=== PATIENT | female | born 1975 | race African-American/Black ===

== ENCOUNTER 2016-06-05 07:41 | Inpatient (IN) | payer OTHER ==
[2016-06-05] MEDS ORDERED: NS 1,000 ML IV ONE (08:09)
[2016-06-05] MEDS ORDERED: ZOFRAN IV ONE (08:09)
[2016-06-05 08:28] LABS: MANUAL DIFF NEEDED? NO; URINE CULTURE NEEDED? NO; URINE MICRO REVIEW NEEDED? NO; URINE SOURCE CLEAN CATCH
[2016-06-05 08:34] LABS: BASO% 0.8 % (0.0-0.8); EOS# 0.25 X1000 (0.0-0.7); EOS% 4.7 % (0.0-10.0); HEMATOCRIT 40.5 % (37.0-47.0); HEMOGLOBIN 13.7 g/dL (12.0-16.0); IMM GRAN# 0.02 X1000 (0.0-0.04); IMM GRAN% 0.4 % (0.0-0.5); LYMPH% 24.5 % (20.5-51.1); MCHC 33.8 g/dL (33-37); MCV 85.6 FL (81-99); MONO# 0.64 X1000 (0.11-0.59); MONO% 12.1 % (1.7-9.3); NEUT% 57.5 % (42.2-75.2); PLT 216 X1000 (130-400); RBC 4.73 XMIL (4.2-5.4)
[2016-06-05 08:36] LABS: BILIRUBIN URINE NEGATIVE (NEGATIVE); BLOOD URINE TRACE (NEGATIVE); COLOR ORANGE; GLUCOSE URINE NEGATIVE (NEGATIVE); LEUKOCYTES URINE NEGATIVE (NEGATIVE); NITRITE URINE NEGATIVE (NEGATIVE); PH URINE 5.5; PROTEIN URINE 30 mg/dL (NEGATIVE); SP GRAVITY URINE 1.017; TURBIDITY URINE CLEAR (CLEAR); UROBILINOGEN URINE 2 mg/dL (NORMAL)
[2016-06-05 08:37] LABS: UR EPITHELIAL CELLS <10 /HPF (<10); URINE BACTERIA NEGATIVE /HPF; URINE RBC <10 /HPF (<10); URINE WBC <10 /HPF (<10)
[2016-06-05] MEDS ORDERED: MORPHINE IV ONE (08:44)
[2016-06-05 09:06] LABS: AGAP 16; ALKALINE PHOSPHATASE 103 U/L (32-104); AMYLASE 274 U/L (20-200); BUN 5 mg/dL (8-22); CALCIUM 9.6 mg/dL (8.8-10.2); CHLORIDE 95 mmol/L (98-107); COSMO 270; GOT 115 U/L (10-30); GPT 62 U/L (10-36); POTASSIUM 3.4 mmol/L (3.5-5.1); SODIUM 136 mmol/L (136-145); TCO2 25 mmol/L (25-35)
--- NOTE | 2016-06-05 09:23 | PROVIDER DOCUMENTATION ---
HPI-Abdominal Pain/GI Problem - General Chief Complaint: Abdominal Pain Stated Complaint: RIB/ABD PAIN Time Seen by Provider: 06/05/16 08:09 Source: patient Allergies/Adverse Reactions: Patient Allergies Allergy/AdvReac Type Severity Reaction Status Date / Time Penicillins Allergy Intermediate RASH Verified 04/13/16 03:23 Home Medications: Home Medication List Medication Instructions Recorded Confirmed Last Taken Type Albuterol Sulfate Inhaler 2 puff INH Q4H PRN PRN #1 inhaler 01/18/16 06/05/16 08:00 Rx [Ventolin Hfa] Lisinopril/Hydrochlorothiazide 1 each PO DAILY 01/18/16 06/05/16 06/04/16 History [Lisinopril-Hctz 20-12.5 mg Tab] - History of Present Illness-ABD Nature of Presenting Problems: patient is 41 yo F that presents to the ER with epigastric pain x 3 days. She denies n/v but does report some diarrhea. Denies fever/chills, shortness of breath. Patient has been eating and drinking as normal. Patient also c/o right rib pain since Mar.31 in which she had fractured ribs. Abdominal Pain Onset Location: reports: epigastric Pain Radiation: reports: no radiation Quality of Pain: reports: aching, cramping Severity in ED: reports: mild Onset/Duration: reports: gradual, 3 days ago Timing: reports: still present, constant Activities at Onset: reports: none Exposure to sick contacts?: No Modifying Factors: improves with: nothing Associated Symptoms: reports: diarrhea. denies: back/neck pain, constipation, fever/chills, genitourinary problems, nausea, shortness of breath, vomiting Similar Symptoms Previously?: No Recently seen or treated by another doctor?: No Review of Systems - Adult - REVIEW OF SYSTEMS - ADULT Constitutional: denies: chills, fever Eyes: reports: no symptoms reported Ears, Nose, Mouth & Throat: reports: no symptoms reported Cardiovascular: denies: chest pain, orthopnea, palpitations, syncope Respiratory: reports: pleurisy. denies: cough, wheezing Gastrointestinal: reports: abdominal pain, diarrhea. denies: nausea, vomiting Genitourinary: reports: no symptoms reported Musculoskeletal: denies: back pain, joint pain, neck pain Integumentary: reports: no symptoms reported Neurological: reports: no symptoms reported Psychiatric: reports: no symptoms reported Endocrine: reports: no symptoms reported Hematologic/Lymphatic: reports: no symptoms reported Allergic/Immunologic: reports: no symptoms reported All Other Systems: Reviewed and Negative Past History - Adult - PAST MEDICAL HISTORY-ADULT Review of Records: reports: Old Records Reviewed, Nursing Assessment Review, Medications Reviewed Cardiovascular: reports: HTN, hyperlipidemia Respiratory: reports: COPD, other (EMPHYSEMA) Psychiatric: reports: anxiety, depression, psychiatric problems Endocrine/Immune: reports: Diabetes, thyroid disorder - PRIOR SURGERIES/PROCEDURES Surgical/Procedure History: reports: hysterectomy, BTL, hernia repair, orthopedic (extremity) - IMMUNIZATION STATUS Childhood Immunizations: See Nurse Assessment Flu Vaccine: See Nurse Assessment - FAMILY HISTORY Family History: reviewed, not pertinent - SOCIAL HISTORY Smoking: cigarettes, less than 1 pack/day Alcohol Use Frequency: occasionally Living Situation: family Physical Exam-General - PHYSICAL EXAM-ADULT Initial Vital Signs Reviewed: Yes - CONSTITUTIONAL General Appearance: alert, no apparent distress - EYES Eyes: PERRL/EOMI, pink conjunctivae - HEAD, EARS, NOSE, MOUTH & THROAT HENMT: normocephalic/atraumatic, moist mucous membranes, normal ENT inspection - NECK Neck: full range of motion, normal inspection - RESPIRATORY Respiratory: lungs clear, normal breath sounds, no respiratory distress, no accessory muscle use - CARDIOVASCULAR Cardiovascular: no gallop, no murmur, tachycardia - GASTROINTESTINAL (ABDOMEN) Abdominal Exam: normal bowel sounds, soft, no organomegaly, no pulsatile mass, tenderness (110s) - MUSCULOSKELETAL Extremity: normal range of motion, non-tender, normal inspection, no pedal edema - SKIN Integumentary: normal color, warm/dry - NEUROLOGIC Neurologic: grossly normal, no motor/sensory deficits - PSYCHIATRIC Psych/Mental Status: normal mood/affect, normal thought content, normal thought process, oriented x 3 Progress - PLAN OF CARE/RESULTS Progress/Plan/Lab Results: plan of care-labs, meds, ct abd/pelv Vital Signs Temp Pulse Resp BP Pulse Ox 06/05/16 07:54 98.8 F 110 H 18 177/122 100 Penicillins Allergy (Intermediate, Verified 04/13/16 03:23) RASH Albuterol Sulfate Inhaler [Ventolin Hfa] 2 puff INH Q4H PRN PRN #1 inhaler 10/18 /16 Lisinopril/Hydrochlorothiazide [Lisinopril-Hctz 20-12.5 mg Tab] 1 each PO DAILY 01/18/16 Dietary Diet NPO Start SunJun 05 08 I&O 06/04/16 06/05/16 06/06/16 06:59 06:59 06:59 Output Total 20 Balance -20 Laboratory 06/05/16 06/05/16 06/05/16 08:15 08:15 08:15 WBC 5.30 RBC 4.73 Hgb 13.7 Hct 40.5 MCV 85.6 MCH 29.0 MCHC 33.8 RDW Std Deviation 13.3 Plt Count 216 MPV 10.0 Immature Gran % (Auto) 0.4 Neut % (Auto) 57.5 Lymph % (Auto) 24.5 [place] % (Auto) 12.1 H Eos % (Auto) 4.7 Baso % (Auto) 0.8 Immature Gran # (Auto) 0.02 Neut # (Auto) 3.05 Lymph # (Auto) 1.30 [place] # (Auto) 0.64 H Eos # (Auto) 0.25 Baso # (Auto) 0.04 Sodium Potassium Chloride Carbon Dioxide Anion Gap BUN Creatinine Estimated GFR/1.73 m2 BUN/Creatinine Ratio Glucose Calculated Osmolality Calcium Total Bilirubin AST ALT Alkaline Phosphatase Total Protein Albumin Globulin Albumin/Globulin Ratio Amylase Lipase Urine Source CLEAN CATCH Urine Color ORANGE Urine Turbidity CLEAR Urine pH 5.5 Ur Specific [place] 1.017 Urine Protein 30 A Ur Glucose (Stick) NEGATIVE Ur Ketones (Stick) NEGATIVE Urine Blood TRACE A Urine Nitrite NEGATIVE Urine Bilirubin NEGATIVE Urobilinogen Dipstick 2 A Urine Leukocytes NEGATIVE Urine WBC (Auto) <10 Urine RBC (Auto) <10 U Epithel Cells (Auto) <10 Urine Bacteria (Auto) NEGATIVE Urine Test NEGATIVE 06/05/16 08:15 WBC RBC Hgb Hct MCV MCH MCHC RDW Std Deviation Plt Count MPV Immature Gran % (Auto) Neut % (Auto) Lymph % (Auto) [place] % (Auto) Eos % (Auto) Baso % (Auto) Immature Gran # (Auto) Neut # (Auto) Lymph # (Auto) [place] # (Auto) Eos # (Auto) Baso # (Auto) Sodium 136 Potassium 3.4 L Chloride 95 L Carbon Dioxide 25 Anion Gap 16 BUN 5 L Creatinine 0.5 Estimated GFR/1.73 m2 > 60 BUN/Creatinine Ratio 10 Glucose 120 H Calculated Osmolality 270 Calcium 9.6 Total Bilirubin 1.00 AST 115 H ALT 62 H Alkaline Phosphatase 103 Total Protein 8.0 Albumin 4.0 Globulin 4.0 Albumin/Globulin Ratio 1.0 Amylase 274 H Lipase 776 H Urine Source Urine Color Urine Turbidity Urine pH Ur Specific [place] Urine Protein Ur Glucose (Stick) Ur Ketones (Stick) Urine Blood Urine Nitrite Urine Bilirubin Urobilinogen Dipstick Urine Leukocytes Urine WBC (Auto) Urine RBC (Auto) U Epithel Cells (Auto) Urine Bacteria (Auto) Urine Test Orders Category Date Time Status Saline Loc DIRECTED Care 06/05/16 08:09 Active NPO Diet 06/05/16 08:[address] ABD/PELVIS W/ IV CONT ONLY [CT] Stat Exams 06/05/16 08:44 Draft FLAT/UPRIGHT ABD/1 VIEW CHEST [RAD] Stat Exams 06/05/16 08:09 Completed AMYLASE [CHEM] Stat Lab 06/05/16 08:15 Completed CBC WITH ELECTRONIC DIFF [HEME] Stat Lab 06/05/16 08:15 Completed COMPREHENSIVE METABOLIC PANEL [CHEM] Stat Lab 06/05/16 08:15 Completed ETOH [ALCOHOL BLOOD] Stat Lab 06/05/16 11:06 Ordered LIPASE [CHEM] Stat Lab 06/05/16 08:15 Completed TEST-URINE [PREG] Stat Lab 06/05/16 08:15 Completed URINALYSIS W/POSS RFLX CULT [URINALYSIS] Stat Lab 06/05/16 08:15 Completed 0.9% Sodium Chloride Inj [Ns] 1,000 ml Med 06/05/16 08:09 Discontinued IV 999 mls/hr Morphine Med 06/05/16 08:44 Discontinued 4 mg IV NOW ONE Ondansetron [Zofran] Med 06/05/16 08:09 Discontinued 4 mg IV NOW ONE - XRAY 1 XRAY Study: Chest Impression: Normal XRAY Interpretation: NAD - CT/MRI 1 CT Study: Abdomen, Pelvis Impression: Abnormal CT Results: calification in the head of pancreas - CONSULTS/PCP/HOSPITALIST Notification #1 *Consult/PCP/Hospitalist*: Arcadio Diaz for hospitalist accepted Time Discussed: 11:15 Consult Disposition: Will see in ED, Admit Departure - Departure Time of Disposition Order: 11:23 DIAGNOSIS: Pancreatitis Qualifiers: Chronicity: acute Pancreatitis type: other Acute pancreatitis complication: uninfected necrosis Qualified Code(s): K85.81 - Other acute pancreatitis with uninfected necrosis Disposition: ADMITTED INPATIENT 09 Certified Medical Emergency: Emergent Condition: Stable Attestation - Scribe Verification/Attestation Scribe:: Saurabh Arnett Acting as Scribe for:: Blake Lozoya Scribe documention review:: This chart was documented by a scribe and accurately reflects the service the provider performed and the decisions made by the provider. Physician Attestation - Physician Attestation I, the provider, attest to the following statement:: Blake Lozoya Physician documentation Attestation:: This documentation recorded by the scribe accurately reflects the service I personally performed and the decisions made by me.
--- NOTE | 2016-06-05 09:45 | Diag Imaging Result Document ---
PROCEDURE NAME: FLAT/UPRIGHT ABD/1 VIEW CHEST - 06/05/2016 FLAT AND UPRIGHT AND CHEST, THREE VIEWS: FINDINGS: The lungs are well expanded. No cardiomegaly. No pneumonia. No free air beneath the diaphragm. Mild scoliosis. No bowel obstruction. No organomegaly. There are several pelvic calcifications consistent with phleboliths. IMPRESSION: No acute abnormality.
[2016-06-05 09:51] LABS: LIPASE 776 U/L (13-60)
--- NOTE | 2016-06-05 10:19 | Diag Imaging Result Document ---
PROCEDURE NAME: CT ABD/PELVIS W/ IV CONT ONLY - 06/05/2016 CT OF THE ABDOMEN WITH INTRAVENOUS CONTRAST: FINDINGS: There are calcifications present in the distal aorta. The mesenteric vessels are patent as are the renal arteries. There appears to be some hypertrophy of the left ventricle. There is no evidence of acute pulmonary disease in the visualized portion of the chest. There are some granulomata present in the liver and spleen. The liver is slightly hypodense suggesting fatty change. The gallbladder is not distended nor are there definite calcified stones. There is a nodular calcification in the head of the pancreas measuring less than 3 mm in diameter. This may be in a distal accessory duct in the head of the pancreas. Otherwise, the pancreas is unremarkable in appearance. The kidneys are without evidence of hydronephrosis. There is a cortical cyst present in the upper pole of the left kidney. There is no evidence of significant adenopathy. CT OF THE PELVIS WITH INTRAVENOUS CONTRAST: FINDINGS: The appendix is not distended or inflamed in appearance measuring less than 7 mm in diameter. There are a few colonic diverticula without evidence of diverticulitis. There has been previous hysterectomy. No abnormal fluid collections are present. IMPRESSION: Calcification in the head of the pancreas which could represent a stone in an accessory duct in the head of the pancreas versus residua from mild chronic pancreatitis. Clinical correlation is recommended.
[2016-06-05] MEDS ORDERED: ATIVAN IV ONE (11:57)
[2016-06-05] MEDS: ATIVAN IV PRN ×2 (13:25→18:55)
[2016-06-05] MEDS: POTASSIUM CHLORIDE 20 MEQ/SWI 100 ML IV SCH ×2 (13:25→15:28)
[2016-06-05] MEDS: NS 1,000 ML IV SCH ×2 (13:25→21:21)
[2016-06-05] MEDS: PROTONIX IV SCH (13:25)
[2016-06-05] MEDS: PRINIVIL PO SCH ×2 (13:25→21:21)
[2016-06-05] MEDS: SODIUM CHLORIDE 0.9% INJ SCH (13:25)
[2016-06-05] MEDS: NICODERM PATCH TD SCH (13:25)
[2016-06-05 14:46] LABS: HDL 71 mg/dL (45-65); LDL 86 mg/dL; TRIGLYCERIDES 73 mg/dL (35-135); VLDL 15 mg/dL
[2016-06-05 14:47] LABS: HEMOGLOBIN A1C 5.4 % (4.8-6.0)
[2016-06-05 14:50] LABS: FREE T4 0.82 ng/dL (0.93-1.70)
[2016-06-05] MEDS: MORPHINE IV PRN ×2 (15:28→21:21)
--- NOTE | 2016-06-05 15:56 | HISTORY AND PHYSICAL ---
HISTORY: She has been hurting for she said a good 3 or 4 days up in the epigastric and left upper quadrant. She denies fever but it hurts to eat and has some low-grade nausea. She admits she drinks at least 10 beers a day. PAST MEDICAL HISTORY: Hypertension, hypercholesterolemia. PAST SURGICAL HISTORY: She fell off her porch and broke her right arm and had some internal fixation with plates done. She has a scar in the posterior right arm and she has had a hysterectomy, she said a month ago. FAMILY HISTORY: Positive for hypertension and diabetes. SOCIAL HISTORY: She smokes about a pack a day. She drinks a good 10-12 beers a day, every day. REVIEW OF SYSTEMS: General: She does not report any weight gain or loss. She does not report any fever or chills. HEENT: Unremarkable. Respiratory: No increased work of breathing or dyspnea. Cardiovascular: No chest pain or tachy palpitation. GI/: As above. No gross hematuria. No hematochezia but abdominal pain and it seems to be intensified after eating, has not been able to eat much in the last couple of days. PHYSICAL EXAMINATION: VITAL SIGNS: Temperature 98.8 degrees, pulse 110, respirations 18, blood pressure 177/122. HEENT: Pupils are equal and round. CVP less than 6 cm. LUNGS: Clear in all lung caruso. CARDIOVASCULAR: Regular rate without murmur or S3. ABDOMEN: Tender, epigastric tender upper left quadrant. Pretty tender. No organomegaly appreciated. No tenderness in the lower quadrant. SKIN: Warm and dry. Carotid, radial and femoral pulses 2+ and symmetrical. LABORATORY STUDIES: White blood cell count 5300, hematocrit 40, platelet count 216,000. Sodium 136, potassium 3.4, chloride 95, bicarbonate 25, BUN 5, creatinine 0.5. Liver functions: Her amylase is 274, lipase 776, transaminases AST and ALT mildly elevated at 115 and 62 respectively. Alkaline phosphatase 103. Abdominal CT and abdominal pelvic CT with IV contrast only, calcification at the head of the pancreas which could represent a stone and an accessory duct in the head of the pancreas versus residua from chronic pancreatitis. Appendix is not distended or inflamed. There a few colonic diverticula. No evidence of diverticulitis. The liver is slightly hypodense suggesting fatty change. Gallbladder is not distended. Pancreas, there is a nodular calcification of the pancreas measuring about 3 mm in diameter. ASSESSMENT AND PLAN: 1. Acute pancreatitis. This appears to be from alcohol. We will give her IV fluids. Hold her NPO and see if this will resolve and give her some pain control, antiemetics. 2. Alcoholism. Of course she is not going to be having any alcohol. Look for signs of withdrawal. We will let her have Ativan right now 1 mg IV q.4 hours p.r.n. withdrawal symptoms or agitation. We will look for withdrawal. 3. General nutrition looks good. Looking at her medications from home she does take a Ventolin inhaler, she is on lisinopril, hydrochlorothiazide. We will stop the hydrochlorothiazide and we will continue the lisinopril. Hydrochlorothiazide can contribute to pancreatitis as well. We may go up on the lisinopril to 20 mg twice a day for right now. Her blood pressure is a little elevated because of the pain. Watch her electrolytes including calcium and phosphorus and follow her pancreatic enzymes.
[2016-06-05] MEDS ORDERED: HUMALOG SUBQ SCH (16:00)
[2016-06-05] MEDS: HUMALOG SUBQ SCH ×2 (18:11→21:04)
[2016-06-06] MEDS ORDERED: CATAPRES PO ONE (01:17)
[2016-06-06] MEDS: MORPHINE IV PRN ×3 (02:59→21:10)
[2016-06-06] MEDS ORDERED: NITROGLYCERIN TOP ONE (03:17)
[2016-06-06 03:33] LABS: HEMATOCRIT 34.9 % (37.0-47.0); HEMOGLOBIN 11.7 g/dL (12.0-16.0); MCH 29.6 PG (27-31); MCHC 33.5 g/dL (33-37); MCV 88.4 FL (81-99); RBC 3.95 XMIL (4.2-5.4)
[2016-06-06] MEDS: NS 1,000 ML IV SCH ×6 (03:40→23:36)
[2016-06-06] MEDS: ATIVAN IV PRN ×3 (03:40→22:07)
[2016-06-06 03:49] LABS: AGAP 13; ALBUMIN 3.1 g/dL (3.5-5.0); ALKALINE PHOSPHATASE 74 U/L (32-104); BUN 4 mg/dL (8-22); CALCIUM 8.7 mg/dL (8.8-10.2); CHLORIDE 101 mmol/L (98-107); COSMO 269; GOT 59 U/L (10-30); GPT 40 U/L (10-36); LIPASE 198 U/L (13-60); POTASSIUM 3.6 mmol/L (3.5-5.1); SODIUM 136 mmol/L (136-145); TCO2 22 mmol/L (25-35); TOTAL BILIRUBIN 0.66 mg/dL (0.20-1.00); TOTAL PROTEIN 6.2 g/dL (6.3-8.3)
[2016-06-06] MEDS: HUMALOG SUBQ SCH ×4 (06:41→20:34)
--- NOTE | 2016-06-06 07:41 | EKG Report ---
Test Performed on : 06/06/2016 03:05:51 AM Test Reason : CP Blood Pressure : / mmHG Vent. Rate : 069 BPM Atrial Rate : 069 BPM P-R Int : 200 ms QRS Dur : 092 ms QT Int : 444 ms P-R-T Axes : 049 041 044 degrees QTc Int : 475 ms Normal sinus rhythm. Minimal voltage criteria for LVH, may be normal variant Borderline ECG When compared with ECG of 01-APR-2016 04:30, No significant change was found Confirmed by Fer NOLEN, Rodriguez Underwood ([id number]) on 06/06/2016 5:21:50 PM
[2016-06-06] MEDS: PRINIVIL PO SCH ×2 (09:25→21:10)
[2016-06-06] MEDS: NICODERM PATCH TD SCH (09:27)
[2016-06-06 11:00] LABS: HEPATITIS PROFILE ACUTE SEE COMMENTS (())
[2016-06-06] MEDS: SODIUM CHLORIDE 0.9% INJ SCH (11:37)
[2016-06-06] MEDS: PROTONIX IV SCH (11:38)
--- NOTE | 2016-06-06 11:49 | Diag Imaging Result Document ---
PROCEDURE NAME: US GB < RUQ (LIMITED) - 06/06/2016 RIGHT UPPER QUADRANT ULTRASOUND: FINDINGS: Normal pancreas. No aneurysmal dilatation to the abdominal aorta. Normal inferior vena cava. No focal or diffuse hepatic abnormality. Normal right kidney. No hydronephrosis. Normal gallbladder. No stones. The gallbladder wall is not thickened. The common bile duct measures 3 mm. No ascites in the right upper quadrant. No abnormality to the right kidney. IMPRESSION: Normal right upper quadrant ultrasound. No pancreatic mass or pseudocyst is identified.
--- NOTE | 2016-06-06 15:25 | PROGRESS NOTE ---
DATE: 06/06/2016 SUBJECTIVE: Today, Ms. Verdugo refers to be doing a whole lot better. Minimum abdominal pain. She is actually requesting to eat some food. OBJECTIVE: Vital signs: Blood pressure is 180/102, pulse of 72, respirations 18, temperature 98.8 degrees. General: Ms. Verdugo is a 41-year-old female. She is in bed, in no distress. HEENT: Mucosa is pink and moist. Anicteric. Acyanotic. Neck: Supple. Chest: Clear. Cardiovascular: Regular rate and rhythm. Abdomen: Soft. Mildly tender in the epigastrium and periumbilical area. Bowel sounds are present. Central Nervous System: Patient is alert and oriented x4. There is no focal neurological deficit. LABORATORY DATA: CBC reviewed and unremarkable except for hemoglobin of 11.7. Chemistry reviewed and unremarkable. AST is down to 59, ALT is down to 40, lipase is down to 198. Hepatitis panel is completely negative. A right upper quadrant abdominal ultrasound shows normal right upper quadrant. ASSESSMENT: 1. Acute pancreatitis, likely due to alcohol-induced. 2. Alcohol abuse. 3. Protein calorie malnutrition. 4. Elevated blood pressure. Patient seems to be actually hypertensive. I am going to add low-dose amlodipine to help control her blood pressure. [facility]
[2016-06-06] MEDS: NORVASC PO SCH (15:28)
[2016-06-06] MEDS: ZOFRAN IV PRN (18:29)
[2016-06-07] MEDS: MORPHINE IV PRN ×5 (02:47→21:42)
[2016-06-07] MEDS: NS 1,000 ML IV SCH ×6 (06:29→23:17)
[2016-06-07 07:19] LABS: HEMATOCRIT 39.7 % (37.0-47.0); MCH 29.4 PG (27-31); MCHC 32.7 g/dL (33-37); MCV 89.8 FL (81-99); MPV 10.4 FL (7.4-10.4); RBC 4.42 XMIL (4.2-5.4)
[2016-06-07] MEDS: HUMALOG SUBQ SCH ×4 (07:20→23:17)
[2016-06-07 07:45] LABS: AGAP 12; ALBUMIN 3.6 g/dL (3.5-5.0); ALKALINE PHOSPHATASE 79 U/L (32-104); BUN 3 mg/dL (8-22); CALCIUM 9.2 mg/dL (8.8-10.2); CHLORIDE 98 mmol/L (98-107); COSMO 273; GOT 49 U/L (10-30); GPT 38 U/L (10-36); LIPASE 285 U/L (13-60); SODIUM 138 mmol/L (136-145); TCO2 28 mmol/L (25-35); TOTAL BILIRUBIN 0.73 mg/dL (0.20-1.00); TOTAL PROTEIN 7.2 g/dL (6.3-8.3)
[2016-06-07] MEDS: NORVASC PO SCH ×2 (08:48→23:16)
[2016-06-07] MEDS: PRINIVIL PO SCH ×2 (08:48→23:16)
[2016-06-07] MEDS: NICODERM PATCH TD SCH (08:48)
[2016-06-07] MEDS: NEUTRA-PHOS PO SCH ×4 (08:51→23:16)
[2016-06-07] MEDS: PROTONIX IV SCH (11:41)
[2016-06-07] MEDS: SODIUM CHLORIDE 0.9% INJ SCH (11:41)
[2016-06-07] MEDS: ZOFRAN IV PRN (14:21)
--- NOTE | 2016-06-07 15:41 | PROGRESS NOTE ---
DATE: 06/07/2016 SUBJECTIVE: Today Ms. Verdugo refers to be doing a lot better. Still continues to have some epigastric discomfort. OBJECTIVE: Vital signs: Blood pressure is 144/100, pulse is 75, respiration is 18, temperature 99.5 degrees. General: Ms. Verdugo is a 41-year-old female. She is in bed, in no distress. HEENT: Mucosa is pink and moist. Anicteric. Acyanotic. Neck: Supple. Chest: Clear. Cardiovascular: Regular rate and rhythm. Abdomen: Soft. Mildly tender in the periumbilical area and epigastrium. Bowel sounds are present. [employer]: Patient is alert and oriented x4. There is no focal neurological deficit. LABORATORY DATA: Has been reviewed. CBC is unremarkable. Chemistry is unremarkable except for potassium of 3.0 which is being replaced, magnesium is 1.4, replace. AST and ALT slightly elevated but improved. Lipase is 285, that has gone up slightly. ASSESSMENT: 1. Acute pancreatitis likely due to alcohol induced. 2. Alcohol abuse. 3. Protein calorie malnutrition. 4. Hypertension, uncontrolled. ASSESSMENT: The patient seems to be doing a little better. However the lipase went up slightly yesterday and waiting to give the patient full healthy heart diet to see if she is able to tolerate it without nausea or vomiting and any worsening of the abdominal pain before we discharge her. In terms of the uncontrolled hypertension, amlodipine was started yesterday, blood pressure has improved somehow, we are going to increase the dose to 5 b.i.d. for better blood pressure control. We will repeat the electrolytes for tomorrow. We will also replace her magnesium and potassium.
[2016-06-07] MEDS: ATIVAN IV PRN (18:29)
[2016-06-08] MEDS: ZOFRAN IV PRN (00:06)
[2016-06-08] MEDS: MORPHINE IV PRN (06:26)
[2016-06-08] MEDS: NS 1,000 ML IV SCH (06:27)
[2016-06-08 06:36] LABS: HEMATOCRIT 38.7 % (37.0-47.0); HEMOGLOBIN 12.6 g/dL (12.0-16.0); MCH 28.8 PG (27-31); MCHC 32.6 g/dL (33-37); MCV 88.6 FL (81-99); MPV 10.1 FL (7.4-10.4); RBC 4.37 XMIL (4.2-5.4)
[2016-06-08 06:41] LABS: AGAP 14; ALBUMIN 3.7 g/dL (3.5-5.0); ALKALINE PHOSPHATASE 84 U/L (32-104); BUN 2 mg/dL (8-22); CALCIUM 9.7 mg/dL (8.8-10.2); CHLORIDE 98 mmol/L (98-107); COSMO 274; GOT 50 U/L (10-30); GPT 40 U/L (10-36); LIPASE 96 U/L (13-60); POTASSIUM 3.4 mmol/L (3.5-5.1); SODIUM 138 mmol/L (136-145); TCO2 26 mmol/L (25-35); TOTAL BILIRUBIN 0.51 mg/dL (0.20-1.00); TOTAL PROTEIN 7.4 g/dL (6.3-8.3)
[2016-06-08 07:35] VITALS: BP 147/109
[2016-06-08] MEDS: HUMALOG SUBQ SCH (07:55)
[2016-06-08] MEDS: PRINIVIL PO SCH (08:00)
[2016-06-08] MEDS: NORVASC PO SCH (08:00)
[2016-06-08] MEDS: NEUTRA-PHOS PO SCH (08:01)
[2016-06-08] MEDS: NICODERM PATCH TD SCH (08:01)
[2016-06-08] MEDS ORDERED: MAG-OX PO SCH (09:15)
[2016-06-08] MEDS ORDERED: NORCO-7.5 PO PRN (09:46)
[2016-06-09] MEDS ORDERED: PRILOSEC PO SCH (07:00)
--- NOTE | 2016-06-15 04:20 | DISCHARGE SUMMARY ---
ADMISSION DATE: 06/05/2016 DISCHARGE DATE: 06/08/2016 CONSULTATION DURING THIS ADMISSION: None. IMAGING STUDIES OF SIGNIFICANCE: 1. CT scan of the abdomen and pelvis shows calcification in the head of the pancreas. Mild chronic pancreatitis. 2. Ultrasound of the abdomen showed normal right upper quadrant. No pancreatic mass or pseudocyst is identified. ADMISSION DIAGNOSES: 1. Acute pancreatitis. 2. Alcoholism. DISCHARGE DIAGNOSES: 1. Alcohol-induced acute pancreatitis. 2. Alcohol abuse. 3. Protein calorie malnutrition. 4. Hypertension. DISCHARGE MEDICATIONS: 1. Hydrocortisone. 2. Lisinopril 20 mg b.i.d. 3. Omeprazole 40 mg daily. 4. Amlodipine 5 mg b.i.d. 5. Magnesium oxide 800 mg b.i.d. PRESENTING COMPLAINT: Abdominal pain. HISTORY OF PRESENTING COMPLAINT: Ms. Verdugo is a 41-year-old, female who presented to the emergency department on 06/05/2016 with history of abdominal discomfort. The patient was evaluated. A CT scan initial suggested a possible acute pancreatitis. Lab work did show lipase level of 776. The patient was subsequently admitted for evaluation and management. HOSPITAL COURSE: The patient was treated in regular fashion with aggressive IV fluids and adequate pain management. Patient normally uses a lot of alcohol, specifically beer on daily basis and we think the pancreatitis was due to alcohol. She did do pretty well during the hospital stay. We did stress on the need for her to stop alcohol bingeing since this is causing her remarkable medical problems. On the day of discharge, she referred to be doing fine. Lipase was on the downward trend and the liver enzymes were also on the downward trend, almost normalized. Patient magnesium was low and was replaced. Potassium was low when was also replaced. Her vital signs at the time of discharge were stable. Blood pressure was also controlled and she was discharged in a very stable condition. Specifically, we stressed the need of alcohol cessation and also the compliance with medication and followup. Time spent for discharge was 36 minutes.
== END 2016-06-08 10:31 | disposition home or self-care (01) | DRG 439 ==
LOC: ED 07:41 → 4N 12:07
PROVIDERS: ATTEND Internal Medicine
DX: K85.20 Alcohol induced acute pancreatitis without necrosis or infection (principal); E46 Unspecified protein-calorie malnutrition; J43.9 Emphysema, unspecified; I10 Essential (primary) hypertension; E78.5 Hyperlipidemia, unspecified; F41.9 Anxiety disorder, unspecified; F32.9 Major depressive disorder, single episode, unspecified; E11.9 Type 2 diabetes mellitus without complications; E07.9 Disorder of thyroid, unspecified; F17.210 Nicotine dependence, cigarettes, uncomplicated; Z79.899 Other long term (current) drug therapy; Z82.49 Family history of ischemic heart disease and other diseases of the circulatory system; Z83.3 Family history of diabetes mellitus; F10.20 Alcohol dependence, uncomplicated; Z68.24 Body mass index [BMI] 24.0-24.9, adult
CPT/HCPCS: 74022; 74177; 76705; 80053; 80061; 80074; 81001; 81025; 82150; 82550; 82607; 82746; 82948; 83036; 83690; 83735; 84439; 84443; 84484; 85025; 85027; 86140; 93005; 93010; 96374; 96375; C9113; G0480; J2060; J2270; J2405; J3480; J7030; Q9967; 80320; S0164

== ENCOUNTER 2016-06-17 21:22 | Inpatient (IN) ==
--- NOTE | 2016-06-17 21:30 | PROVIDER DOCUMENTATION ---
HPI-General Adult - General Stated Complaint: PANCREATIC PAIN Time Seen by Provider: 06/17/16 21:26 Source: patient Allergies/Adverse Reactions: Patient Allergies Allergy/AdvReac Type Severity Reaction Status Date / Time Penicillins Allergy Intermediate RASH Verified 04/13/16 03:23 Home Medications: Home Medication List Medication Instructions Recorded Confirmed Last Taken Type Albuterol Sulfate Inhaler 2 puff INH Q4H PRN PRN #1 inhaler 01/18/16 06/05/16 08:00 Rx [Ventolin Hfa] Amlodipine [Norvasc] 5 mg PO BID #60 tablet 06/08/16 Unknown Rx Hydrocodone/APAP 7.5 mg/325 mg 1 each PO Q6H PRN PRN #10 tablet 06/08/16 Unknown Rx [[place]-7.5] LISINOpril [Prinivil] 20 mg PO BID #60 tablet 06/08/16 Unknown Rx Magnesium Oxide [Mag-Ox] 800 mg PO BID #60 tablet 06/08/16 Unknown Rx Naph,Mb-Db/K pH,Mbdb [Neutra-Phos] 1 each PO 4XDAY #60 powd.pack 06/08/16 Unknown Rx Omeprazole [Prilosec] 40 mg PO DAILY@0700 #30 capsule 06/08/16 Unknown Rx - History of Present Illness -Gen Adult Nature of Presenting Problems: Pt. is 41 yof that presents with c/o epigastric pain that began three days ago. Pt. reports she was discharged from [facility] last after being admitted for Pancreatitis and reports this pain is the same. Pt. also has N/V. Pt. denies any other symptoms. Location of Pain/Injury: reports: abdomen. denies: head, face, mouth, neck, chest, upper extremity, hand(s), back, pelvis, genitalia, lower extremity, feet , upper body, lower body, generalized Pain Radiation: reports: no radiation Quality of Pain: reports: aching. denies: burning, cramping, dull, fullness, indigestion, pressure, sharp, stabbing, tearing, throbbing, tightness Severity: reports: moderate. denies: mild, severe Onset/Duration: reports: gradual, 3 days ago Timing: reports: still present, constant. denies: improving, gone now, resolved prior to arrival, intermittent, changing over time, getting worse Context/Activities at Onset: reports: none. denies: recent emotional stress, recent physical stress, recent trauma history, possible bad food, cold exposure , out of country travel Modifying Factors: improves with: nothing Associated Symptoms: reports: heartburn, nausea, vomiting. denies: anxiety, arm pain, back/neck pain, chest pain, constipation, cough, diaphoresis, diarrhea , dizziness, EENT symptoms, fatigue, fever/chills, genitourinary problems, headaches, joint pain, loss of appetite, malaise, muscle aches, sinus congestion /drainage, rash, seizure, shortness of breath, sensory/motor loss, pain with inspiration, swelling/mass in abdomen, syncope, weakness, trouble walking Similar Symptoms Previously?: Yes Recently seen or treated by another doctor?: Yes Review of Systems - Adult - REVIEW OF SYSTEMS - ADULT Constitutional: reports: see HPI. denies: chills, fever, fatique Eyes: reports: see HPI. denies: discharge, blurred vision, double vision, eye pain Ears, Nose, Mouth & Throat: reports: see HPI. denies: ear pain, hearing loss, sinus problem, nose pain, loose teeth, mouth/dental pain, throat pain, throat swelling Cardiovascular: reports: see HPI. denies: chest pain, heart murmur, palpitations, syncope Respiratory: reports: see HPI. denies: cough, dyspnea on exertion, pleurisy, shortness of breath, wheezing Gastrointestinal: reports: see HPI, abdominal pain, nausea, vomiting. denies: constipation, difficulty swallowing Genitourinary: reports: see HPI. denies: dysuria, frequency, flank pain, hesitency, urgency Musculoskeletal: reports: see HPI. denies: back pain, joint pain, muscle aches , neck pain Integumentary: reports: see HPI. denies: hives, hair loss, itching, rash, skin thickening Neurological: reports: see HPI. denies: ataxia, headache/migraines, numbness, seizure, tremors Psychiatric: reports: see HPI. denies: anxiety, depression, emotional problems , insomnia, panic attacks, suicidal thoughts Past History - Adult - PAST MEDICAL HISTORY-ADULT Review of Records: reports: Old Records Reviewed, Nursing Assessment Review, Medications Reviewed, Social history reviewed & non-contributory. Cardiovascular: reports: HTN, hyperlipidemia Respiratory: reports: COPD, other (EMPHYSEMA) Psychiatric: reports: anxiety, depression, psychiatric problems Endocrine/Immune: reports: Diabetes, thyroid disorder - PRIOR SURGERIES/PROCEDURES Surgical/Procedure History: reports: hysterectomy, BTL, hernia repair, orthopedic (extremity) - IMMUNIZATION STATUS Childhood Immunizations: See Nurse Assessment Flu Vaccine: See Nurse Assessment - FAMILY HISTORY Family History: reviewed, not pertinent - SOCIAL HISTORY Smoking: cigarettes, greater than 1 pack/day Provider spent 3-5 mins advising pt. on dangers of tobacco.: Discussed the need to stop smoking. Physical Exam-General - PHYSICAL EXAM-ADULT Initial Vital Signs Reviewed: Yes - CONSTITUTIONAL General Appearance: alert, moderate distress, thin. negative: obese, anxious, lethargic, slow to respond, obtunded, combative - EYES Eyes: PERRL/EOMI, pink conjunctivae. negative: conjuctival exudate, scleral icterus, subconjunctival hemorrhage - HEAD, EARS, NOSE, MOUTH & THROAT HENMT: normocephalic/atraumatic, moist mucous membranes. negative: angioedema, frontal tenderness, maxillary tenderness - NECK Neck: non-tender, full range of motion, supple, normal inspection. negative: lymphadenopathy, trachial deviation, thyromegaly - RESPIRATORY Respiratory: lungs clear, normal breath sounds. negative: crackles, rales, rhonchi, stridor, wheezing - CARDIOVASCULAR Cardiovascular: normal peripheral pulses, regular rate, rhythm, no edema, no JVD , no murmur. negative: extra beats, friction rub, irregularly irregular - CHEST (BREASTS) Chest/Breast: deferred - GASTROINTESTINAL (ABDOMEN) Abdominal Exam: normal bowel sounds, soft, tenderness (epigastric pain). negative: distended, guarding, rigid, rebound, hernia, mass - GENITOURINARY Female Genitalia/Pelvic Exam: deferred Rectal Exam: deferred Hemoccult Exam: deferred - LYMPHATIC Lymphatic: no adenopathy. negative: axilla node tender, cervical node tenderness - MUSCULOSKELETAL Back Exam: normal inspection, no CVA tenderness, no vertebral tenderness. negative: ecchymosis, swelling, vertebral tenderness Extremity: normal range of motion, non-tender, normal gait, normal inspection. negative: deformity, erythema, inflammation, swelling, tenderness Peripheral Pulses: radial (R): 2+, radial (L): 2+ - SKIN Integumentary: normal color, normal turgor, warm/dry. negative: cyanosis, diaphoresis, ecchymosis, erythema, jaundice, mottled, pallor, petechiae, purpura , rash, swelling, tenderness - NEUROLOGIC Neurologic: grossly normal, no motor/sensory deficits. negative: aphasia, facial droop, focal weakness, motor weakness, sensory deficit - PSYCHIATRIC Psych/Mental Status: normal mood/affect, normal thought content, normal thought process, oriented x 3. negative: anxious, paranoid, tearful Progress - PLAN OF CARE/RESULTS Progress/Plan/Lab Results: Discussed results and plan of care with patient. Patient agrees with plan and verbalizes understanding. Vital Signs Temp Pulse Resp BP Pulse Ox 06/17/16 21:29 98.8 F 102 H 22 182/120 100 Penicillins Allergy (Intermediate, Verified 04/13/16 03:23) RASH Albuterol Sulfate Inhaler [Ventolin Hfa] 2 puff INH Q4H PRN PRN #1 inhaler 01/17 Amlodipine [Norvasc] 5 mg PO BID #60 tablet 06/08/16 Hydrocodone/APAP 7.5 mg/325 mg [[place]-7.5] 1 each PO Q6H PRN PRN #10 tablet 12/17 LISINOpril [Prinivil] 20 mg PO BID #60 tablet 06/08/16 Magnesium Oxide [Mag-Ox] 800 mg PO BID #60 tablet 06/08/16 Naph,Mb-Db/K pH,Mbdb [Neutra-Phos] 1 each PO 4XDAY #60 powd.pack 06/08/16 Omeprazole [Prilosec] 40 mg PO DAILY@0700 #30 capsule 06/08/16 Dietary Diet NPO Start Sat Jun 17 2304 I&O 06/16/16 06/17/16 06/18/16 06:59 06:59 06:59 Output Total 60 Balance -60 Laboratory 06/17/16 06/17/16 06/17/16 22:05 21:49 21:49 WBC RBC Hgb Hct MCV MCH MCHC RDW Std Deviation Plt Count MPV Immature Gran % (Auto) Neut % (Auto) Lymph % (Auto) [place] % (Auto) Eos % (Auto) Baso % (Auto) Immature Gran # (Auto) Neut # (Auto) Lymph # (Auto) [place] # (Auto) Eos # (Auto) Baso # (Auto) Sodium 136 Potassium 3.1 L Chloride 93 L Carbon Dioxide 26 Anion Gap 17 BUN 5 L Creatinine 0.5 Estimated GFR/1.73 m2 > 60 BUN/Creatinine Ratio 10 Glucose 127 H Calculated Osmolality 271 Calcium 9.9 Total Bilirubin 0.26 AST 42 H ALT 24 Alkaline Phosphatase 77 Creatine Kinase 87 Troponin T < 0.010 Total Protein 7.7 Albumin 3.8 Globulin 3.9 Albumin/Globulin Ratio 1.0 Amylase 1926 H Lipase > 3000 H Urine Source CLEAN CATCH Urine Color YELLOW Urine Turbidity CLEAR Urine pH 7.5 Ur Specific [place] 1.009 Urine Protein TRACE A Ur Glucose (Stick) NEGATIVE Ur Ketones (Stick) NEGATIVE Urine Blood NEGATIVE Urine Nitrite NEGATIVE Urine Bilirubin NEGATIVE Urobilinogen Dipstick NORMAL Urine Leukocytes SMALL A Urine WBC (Auto) <10 Urine RBC (Auto) <10 U Epithel Cells (Auto) <10 Urine Bacteria (Auto) NEGATIVE 06/17/16 21:49 WBC 9.34 RBC 4.69 Hgb 13.5 Hct 40.6 MCV 86.6 MCH 28.8 MCHC 33.3 RDW Std Deviation 13.3 Plt Count 439 H MPV 9.2 Immature Gran % (Auto) 0.3 Neut % (Auto) 66.4 Lymph % (Auto) 21.6 [place] % (Auto) 8.9 Eos % (Auto) 2.6 Baso % (Auto) 0.2 Immature Gran # (Auto) 0.03 Neut # (Auto) 6.20 Lymph # (Auto) 2.02 [place] # (Auto) 0.83 H Eos # (Auto) 0.24 Baso # (Auto) 0.02 Sodium Potassium Chloride Carbon Dioxide Anion Gap BUN Creatinine Estimated GFR/1.73 m2 BUN/Creatinine Ratio Glucose Calculated Osmolality Calcium Total Bilirubin AST ALT Alkaline Phosphatase Creatine Kinase Troponin T Total Protein Albumin Globulin Albumin/Globulin Ratio Amylase Lipase Urine Source Urine Color Urine Turbidity Urine pH Ur Specific [place] Urine Protein Ur Glucose (Stick) Ur Ketones (Stick) Urine Blood Urine Nitrite Urine Bilirubin Urobilinogen Dipstick Urine Leukocytes Urine WBC (Auto) Urine RBC (Auto) U Epithel Cells (Auto) Urine Bacteria (Auto) Orders Category Date Time Status Saline Loc NOW Care 06/17/16 21:38 Active NPO Diet 06/17/16 23:[address] ABD/PELVIS W/ IV CONT ONLY [CT] Stat Exams 06/17/16 23:17 Ordered AMYLASE [CHEM] Stat Lab 06/17/16 21:49 Completed CBC WITH ELECTRONIC DIFF [HEME] Stat Lab 06/17/16 21:49 Completed CK PROFILE [SP CHEM] Stat Lab 06/17/16 21:49 Completed COMPREHENSIVE METABOLIC PANEL [CHEM] Stat Lab 06/17/16 21:49 Completed LIPASE [CHEM] Stat Lab 06/17/16 21:49 Completed TROPONIN T Stat Lab 06/17/16 21:49 Completed URINALYSIS W/POSS RFLX CULT [URINALYSIS] Stat Lab 06/17/16 22:05 Completed URINE CULTURE [RM] Routine Lab 06/17/16 22:32 Received 0.9% Sodium Chloride Inj [Ns] 1,000 ml Med 06/17/16 21:39 Discontinued IV 999 mls/hr Hydromorphone [Dilaudid] Med 06/17/16 21:46 Discontinued 1 mg IV NOW ONE Ondansetron [Zofran] Med 06/17/16 21:39 Discontinued 4 mg IV NOW ONE Pantoprazole [Protonix] Med 06/17/16 21:46 Discontinued 40 mg IV NOW ONE Potassium Chloride 20 Meq/Swi 100 ml Med 06/17/16 23:45 Ordered IV Q2H Sodium Chloride 0.9% Med 06/17/16 21:46 Discontinued 10 ml INJ NOW ONE EKG [EKG] Stat Ther 06/17/16 21:48 Ordered Laboratory Tests 06/17/16 06/17/16 06/17/16 21:49 21:49 21:49 WBC 9.34 RBC 4.69 Hgb 13.5 Hct 40.6 MCV 86.6 MCH 28.8 MCHC 33.3 RDW Std Deviation 13.3 Plt Count 439 H MPV 9.2 Immature Gran % (Auto) 0.3 Neut % (Auto) 66.4 Lymph % (Auto) 21.6 [place] % (Auto) 8.9 Eos % (Auto) 2.6 Baso % (Auto) 0.2 Immature Gran # (Auto) 0.03 Neut # (Auto) 6.20 Lymph # (Auto) 2.02 [place] # (Auto) 0.83 H Eos # (Auto) 0.24 Baso # (Auto) 0.02 Sodium 136 Potassium 3.1 L Chloride 93 L Carbon Dioxide 26 Anion Gap 17 BUN 5 L Creatinine 0.5 Estimated GFR/1.73 m2 > 60 BUN/Creatinine Ratio 10 Glucose 127 H Calculated Osmolality 271 Calcium 9.9 Total Bilirubin 0.26 AST 42 H ALT 24 Alkaline Phosphatase 77 Creatine Kinase 87 Troponin T < 0.010 Total Protein 7.7 Albumin 3.8 Globulin 3.9 Albumin/Globulin Ratio 1.0 Amylase 1926 H Lipase > 3000 H Urine Source Urine Color Urine Turbidity Urine pH Ur Specific [place] Urine Protein Ur Glucose (Stick) Ur Ketones (Stick) Urine Blood Urine Nitrite Urine Bilirubin Urobilinogen Dipstick Urine Leukocytes Urine WBC (Auto) Urine RBC (Auto) U Epithel Cells (Auto) Urine Bacteria (Auto) 06/17/16 22:05 WBC RBC Hgb Hct MCV MCH MCHC RDW Std Deviation Plt Count MPV Immature Gran % (Auto) Neut % (Auto) Lymph % (Auto) [place] % (Auto) Eos % (Auto) Baso % (Auto) Immature Gran # (Auto) Neut # (Auto) Lymph # (Auto) [place] # (Auto) Eos # (Auto) Baso # (Auto) Sodium Potassium Chloride Carbon Dioxide Anion Gap BUN Creatinine Estimated GFR/1.73 m2 BUN/Creatinine Ratio Glucose Calculated Osmolality Calcium Total Bilirubin AST ALT Alkaline Phosphatase Creatine Kinase Troponin T Total Protein Albumin Globulin Albumin/Globulin Ratio Amylase Lipase Urine Source CLEAN CATCH Urine Color YELLOW Urine Turbidity CLEAR Urine pH 7.5 Ur Specific [place] 1.009 Urine Protein TRACE A Ur Glucose (Stick) NEGATIVE Ur Ketones (Stick) NEGATIVE Urine Blood NEGATIVE Urine Nitrite NEGATIVE Urine Bilirubin NEGATIVE Urobilinogen Dipstick NORMAL Urine Leukocytes SMALL A Urine WBC (Auto) <10 Urine RBC (Auto) <10 U Epithel Cells (Auto) <10 Urine Bacteria (Auto) NEGATIVE - CONSULTS/PCP/HOSPITALIST Notification #1 *Consult/PCP/Hospitalist*: Dr. Garcia Time Discussed: 00:17 Reason/Comments: Admission Consult Disposition: Will see in ED, Admit Departure - Departure Time of Disposition Order: 23:18 DIAGNOSIS: Pancreatitis Qualifiers: Chronicity: acute Pancreatitis type: unspecified pancreatitis type Acute pancreatitis complication: unspecified Qualified Code(s): K85.90 - Acute pancreatitis without necrosis or infection, unspecified Disposition: ADMITTED INPATIENT 09 Certified Medical Emergency: Emergent Condition: Stable Referrals: Octavio Samaniego MD [Primary Care Provider] - Attestation - Physician/ [place] Attestation Patient care was provided by Advanced Practice Provider:: Yes Advanced Practice Provider:: Iman Frias Advanced Practice Provider documentation review:: The Mid-level provider documentation, treatment plan and medical decision making was reviewed by the physician who agrees with all treatment and medical decision making by the MLP.
[2016-06-17] MEDS ORDERED: NS 1,000 ML IV ONE (21:39)
[2016-06-17] MEDS ORDERED: ZOFRAN IV ONE (21:39)
[2016-06-17] MEDS ORDERED: PROTONIX IV ONE (21:46)
[2016-06-17] MEDS ORDERED: DILAUDID IV ONE (21:46)
[2016-06-17] MEDS ORDERED: SODIUM CHLORIDE 0.9% INJ ONE (21:46)
[2016-06-17 22:02] LABS: MANUAL DIFF NEEDED? NO
[2016-06-17 22:15] LABS: BASO% 0.2 % (0.0-0.8); EOS# 0.24 X1000 (0.0-0.7); EOS% 2.6 % (0.0-10.0); HEMATOCRIT 40.6 % (37.0-47.0); HEMOGLOBIN 13.5 g/dL (12.0-16.0); IMM GRAN# 0.03 X1000 (0.0-0.04); IMM GRAN% 0.3 % (0.0-0.5); LYMPH# 2.02 X1000 (1.2-3.4); LYMPH% 21.6 % (20.5-51.1); MCH 28.8 PG (27-31); MCHC 33.3 g/dL (33-37); MCV 86.6 FL (81-99); MONO# 0.83 X1000 (0.11-0.59); MONO% 8.9 % (1.7-9.3); MPV 9.2 FL (7.4-10.4); NEUT% 66.4 % (42.2-75.2); PLT 439 X1000 (130-400); RBC 4.69 XMIL (4.2-5.4)
[2016-06-17 22:16] LABS: URINE MICRO REVIEW NEEDED? NO; URINE SOURCE CLEAN CATCH
[2016-06-17 22:19] LABS: BILIRUBIN URINE NEGATIVE (NEGATIVE); BLOOD URINE NEGATIVE (NEGATIVE); COLOR YELLOW; GLUCOSE URINE NEGATIVE (NEGATIVE); LEUKOCYTES URINE SMALL (NEGATIVE); NITRITE URINE NEGATIVE (NEGATIVE); PH URINE 7.5; PROTEIN URINE TRACE mg/dL (NEGATIVE); SP GRAVITY URINE 1.009; TURBIDITY URINE CLEAR (CLEAR); UR EPITHELIAL CELLS <10 /HPF (<10); URINE BACTERIA NEGATIVE /HPF; URINE CULTURE NEEDED? YES; URINE RBC <10 /HPF (<10); URINE WBC <10 /HPF (<10); UROBILINOGEN URINE NORMAL (NORMAL)
--- NOTE | 2016-06-17 22:25 | ED EKG INTERP ---
EKG Interpretation - EKG Time of EKG reading by physician:: 22:24 EKG Read and Signed by:: Conor Lees EKG Interpretation (*Must complete 3 of following elements*): Abnormal ( Possible L atrial enlargement; LVH; Prolonged QT) Rate: 82 Rhythm: NSR Attestation - Scribe Verification/Attestation Scribe:: George Sanders Acting as Scribe for:: Conor Lees Scribe documention review:: This chart was documented by a scribe and accurately reflects the service the provider performed and the decisions made by the provider.
[2016-06-17 22:54] LABS: AGAP 17; ALBUMIN 3.8 g/dL (3.5-5.0); ALKALINE PHOSPHATASE 77 U/L (32-104); AMYLASE 1926 U/L (20-200); BUN 5 mg/dL (8-22); CALCIUM 9.9 mg/dL (8.8-10.2); CHLORIDE 93 mmol/L (98-107); CK PROFILE 87 U/L (24-173); COSMO 271; GOT 42 U/L (10-30); GPT 24 U/L (10-36); POTASSIUM 3.1 mmol/L (3.5-5.1); SODIUM 136 mmol/L (136-145); TCO2 26 mmol/L (25-35); TOTAL BILIRUBIN 0.26 mg/dL (0.20-1.00); TOTAL PROTEIN 7.7 g/dL (6.3-8.3)
[2016-06-17 23:05] LABS: LIPASE > 3000 U/L (13-60)
[2016-06-18] MEDS: POTASSIUM CHLORIDE 20 MEQ/SWI 100 ML IV SCH ×2 (00:05→03:44)
[2016-06-18] MEDS ORDERED: BENADRYL IV ONE (00:15)
[2016-06-18] MEDS: NS 1,000 ML IV ONE ×2 (04:02→14:19)
[2016-06-18] MEDS ORDERED: ZOFRAN IV PRN (05:30)
--- NOTE | 2016-06-18 05:52 | HISTORY AND PHYSICAL ---
PRIMARY CARE PHYSICIAN: Dr. Octavio Samaniego. CHIEF COMPLAINT: Nausea, vomiting, and abdominal pain x3 days. HISTORY OF PRESENTING ILLNESS: A 41-year-old female with hypertension, COPD, and chronic pancreatitis who had presented to the emergency department with a 3 day history of having nausea, vomiting, and severe abdominal pain. The patient states that she could not eat anything. She was vomiting. She was having worsening epigastric pain. She was evaluated in the ER. She had imaging done which did show peripancreatic edema and also splenic vein thrombosis. Due to these presenting symptoms, it was thought that she would need hospitalization for further management. At the time of my examination, she had denied any headache, fever, chills, chest pain, shortness of breath, hemoptysis, or any weight changes but complained of a moderate amount of epigastric pain. PAST MEDICAL HISTORY: Includes hypertension, COPD, chronic pancreatitis. PAST SURGICAL HISTORY: Hysterectomy and right arm surgery. ALLERGIES: Penicillin. CURRENT MEDICATIONS: As listed in the MAR. SOCIAL HISTORY: She has a 20 pack year history of smoking. History of alcohol abuse, about 10-12 beers daily. States apparently quit when she had her last bout of pancreatitis last week or so. No history of drug use. FAMILY HISTORY: No history of coronary artery disease. REVIEW OF SYSTEMS: Twelve point review of systems listed as in the HPI. Other systems negative. PHYSICAL EXAMINATION: GENERAL: Cooperative, friendly female. She is resting comfortably now. VITAL SIGNS: Temperature 98.8 degrees, pulse 102, respirations 22, blood pressure 182/120. HEENT: Atraumatic, normocephalic. Extraocular movements intact. PERRLA. NECK: No masses. CHEST: Clear to auscultation. CARDIOVASCULAR: Regular rate and rhythm. ABDOMEN: Soft. Epigastric tenderness. EXTREMITIES: No edema. NEUROLOGIC: She is awake, alert, oriented x3. : No bladder distention. SKIN: Warm. LABORATORIES AND STUDIES: WBCs 9.34, hemoglobin 13.5, hematocrit 40.6, platelets 439,000. Sodium 136, potassium 3.1, chloride 93, CO2 is 26, BUN is 5, creatinine 0.5, glucose is 127. Lipase is greater than 3000, amylase is 1926. ASSESSMENT: A 41-year-old female with a history of hypertension, chronic obstructive pulmonary disease, and chronic pancreatitis who presented to the emergency department with worsening epigastric pain. She had imaging done which did show a splenic vein thrombosis and peripancreatic edema. Due to her presenting symptoms, the patient will need hospitalization for further management. 1. Acute on chronic pancreatitis. 2. 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 3. Chronic alcoholism. 4. Hypertension. 5. Ongoing tobacco abuse. PLAN: 1. We will admit patient to the medical floor with telemetry. 2. We will keep patient NPO. Give patient supportive treatment, antiemetics and pain control. 3. We will consult general surgery for evaluation of splenic vein thrombosis. 4. I counseled patient extensively on alcohol and smoking cessation. 5. We will monitor blood pressure closely. Resume antihypertensive agent. 6. We will put patient on DVT prophylaxis with SCD. 7. We will continue to follow and reassess.
[2016-06-18] MEDS: NS 1,000 ML IV SCH ×2 (05:59→20:52)
--- NOTE | 2016-06-18 06:04 | EKG Report ---
Test Performed on : 06/17/2016 10:15:37 PM Test Reason : epigastric pain Blood Pressure : / mmHG Vent. Rate : 082 BPM Atrial Rate : 082 BPM P-R Int : 206 ms QRS Dur : 096 ms QT Int : 454 ms P-R-T Axes : 071 037 048 degrees QTc Int : 530 ms Normal sinus rhythm. Possible Left atrial enlargement Left ventricular hypertrophy Prolonged QT Abnormal ECG When compared with ECG of 06-JUN-2016 03:05, QT has lengthened Unconfirmed Result
[2016-06-18] MEDS: NORVASC PO SCH ×3 (06:36→20:53)
[2016-06-18] MEDS: DILAUDID IV PRN ×4 (06:36→21:51)
[2016-06-18] MEDS: PRINIVIL PO SCH ×3 (06:36→20:53)
--- NOTE | 2016-06-18 10:23 | Diag Imaging Result Document ---
PROCEDURE NAME: CT ABD/PELVIS W/ IV CONT ONLY - 06/17/2016 CT ABDOMEN AND PELVIS WITH IV CONTRAST: COMPARISON: 06/05/2016. FINDINGS: There has been development of mild peripancreatic edema suggesting mild acute pancreatitis. There is still a tiny punctate calcification in the head of the pancreas that could be within the accessory pancreatic duct. This is stable. There appears to be acute thrombosis of the splenic vein, likely related to the pancreatitis. There has been interval development of a small amount of free fluid that is layering in the pelvis. The remainder of the solid viscera of the abdomen and pelvis and the remainder of the GI tract is essentially stable as compared to the recent previous study. IMPRESSION: 1. Development of very mild peripancreatic edema suggesting acute pancreatitis most likely. 2. Stable small calcification in the head of the pancreas and possibly in an accessory pancreatic duct. 3. Acute splenic vein thrombosis. 4. Interval development of a small amount of free fluid layering in the pelvis.
[2016-06-18] MEDS ORDERED: BENADRYL PO ONE (12:26)
[2016-06-18] MEDS ORDERED: POTASSIUM CHLORIDE 60 MEQ in NS 500 ML IV ONE (14:00)
[2016-06-18] MEDS: BENADRYL IV PRN ×2 (17:38→22:22)
[2016-06-18] MEDS: SODIUM CHLORIDE 0.9% INJ SCH (17:51)
[2016-06-18] MEDS: PROTONIX IV SCH (17:51)
--- NOTE | 2016-06-18 19:53 | CONSULTATION ---
DATE OF CONSULTATION: 06/18/2016 CHIEF COMPLAINT: Epigastric pain. HISTORY: A 41-year-old female admitted during the night with a 3-day history of epigastric pain. She has known chronic pancreatitis. She is admitted with acute onset of renewal of epigastric pain and CT shows some acute inflammation. Her lipase and amylase were elevated and she now has splenic vein thrombosis. PAST MEDICAL HISTORY: Pertinent for hypertension, COPD, chronic pancreatitis. PREVIOUS SURGERY: Hysterectomy and arm surgery. MEDICATIONS: Ventolin, hydrocodone, Prinivil, Neutra-Phos, Prilosec, Norvasc and Mag-oxide. ALLERGIES: She is allergic to penicillin. SOCIAL HISTORY: She does smoke. She does drink alcohol, drinking 10 or 12 beers daily. She denies any illicit drug use. FAMILY HISTORY: Pertinent for coronary artery disease. REVIEW OF SYSTEMS: Pertinent for the epigastric pain. Mild shortness of breath as well. PHYSICAL EXAMINATION: VITAL SIGNS: She is afebrile, heart rate 85, respiratory rate 16, blood pressure 165/100. No cervical adenopathy. Lungs: Bilateral breath sounds. Heart: Regular rate and rhythm. She is mildly tender in the epigastrium. No peritoneal signs. No peripheral edema. She is awake and alert. DIAGNOSTICS/LABORATORY: White count is what 9300. Chemistry shows a potassium of 3.1, chloride 93, total bilirubin 0.26, AST 42, ALT 24, alkaline phosphatase 77, amylase 1926, lipase greater than 3000. ASSESSMENT: 1. Acute pancreatitis on top of chronic pancreatitis. 2. Splenic vein thrombosis which apparently is a new phenomenon. RECOMMENDATIONS: I would recommend that she probably be anticoagulated assuming her coagulations are normal. I think it is okay for us to start liquids, but would avoid fats for now until her amylase and lipase normalize. She will need to become abstinent in order for her pancreas to heal. I will follow along. Thanks for the opportunity to see her.
[2016-06-18] MEDS ORDERED: M.V.I.-12 10 ML, FOLIC ACID 1 MG, MAGNESIUM SULFATE 1 GM, THIAMINE 100 MG in NS 1,000 ML IV SCH (20:00)
[2016-06-18] MEDS: LOVENOX SUBQ SCH (20:53)
[2016-06-18] MEDS: CENTRUM SILVER PO SCH (20:53)
--- NOTE | 2016-06-18 23:15 | CONSULTATION ---
DATE OF CONSULTATION: 06/18/2016 PRIMARY CARE: Dr. Samaniego. REASON FOR CONSULTATION: Pancreatitis and nausea, vomiting, abdominal pain, and splenic vein thrombosis, history of alcoholism. HISTORY OF PRESENT ILLNESS: Ms. Verdugo is 41-year-old female who was admitted last night for symptoms of abdominal pain in epigastric region which she ranks at 10/10 along with nausea, vomiting, decreased p.o. intake. She presented to the ER. She had imaging done which showed evidence of pancreatitis, peripancreatic edema and new diagnosis of acute splenic vein thrombosis. She was admitted for further workup. She was put on IV fluids. She denies any nausea or vomiting. Today in fact she is getting hungry and she wants to eat. She has history of alcoholism for more than 10-20 years. She had been drinking about 10-12 beers daily. She does not recall having any previous pancreatitis although she was in the hospital last week with a similar presentation of pancreatitis. She is also chronic smoker has a 20 pack year history of smoking. She is trying to quit. She denies any previous history of liver disease secondary to alcoholism. She denies any vomiting or passing blood in the stools. PAST MEDICAL HISTORY: Of hypertension, COPD, chronic pancreatitis, alcoholism, chronic tobacco abuse. PAST SURGICAL HISTORY: Hysterectomy, right arm surgery. ALLERGIES: Penicillin. MEDICATIONS: Reviewed in the chart. SOCIAL HISTORY: She has 20 pack year history of smoking. History of alcohol abuse. Drinks 10- 12 beers daily. She has been doing that for 10-20 years, denies history of drug abuse. FAMILY HISTORY: No history of any pancreatic cancer in the family. REVIEW OF SYSTEMS: Denies any current fevers, rigors, chills, chest pain, shortness of breath, dyspnea at rest. Denies any genitourinary, neurologic complaints. Denies history of vomiting, passing blood in the stools. PHYSICAL EXAM: Vitals: Temperature of 98.6 degrees, pulse of 68, respiratory 20, blood pressure 140/99, saturating 100% room air, body weight of 149 pounds. General: Is moderate built lying in bed in no acute. HEENT: Pale conjunctivae. No icterus. Pupils equal, react to light. Neck: Supple. Chest: Decreased. Cardiac: Regular rhythm. No murmur. Abdomen: Discomfort epigastric region, no rebound, no guarding. Bowel sounds present but hypoactive. Extremities: No cyanosis, clubbing, edema. Neurologic: She is alert, awake, oriented. LABS: Her hemoglobin and hematocrit is 13.5 and 40.6, white count of 9.34, platelet count of 439,000, MCV of 86.6. Sodium 136, potassium 3.1, chloride 93, bicarb 26, anion gap 17, BUN of 5, creatinine 0.5, glucose of 127, calcium 9.9, total bilirubin is 0.26, AST 42, ALT 24, alkaline phosphatase is 77, total protein 7.7, albumin 3.8, amylase of 1926, lipase of more than 3000. Troponins less than 0.01. Prior to this visit on 06/08/2016 her lipase 96 and on admission that time her highest lipase was 776. Urinalysis showing trace protein, small leukocytes. Imaging in the form of CT abdomen and pelvis done on 06/17/2016 showed development of very mild fatty pancreatic edema suggesting acute pancreatitis most likely. 2) Stable small calcified hilar pancreas and possibly an accessory pancreatic duct. 3) Acute splenic vein thromboses. 4) Interval small free fluid layering in the pelvis. The remainder of the GI tract is essentially stable. IMPRESSION AND PLAN: 1. Alcoholic pancreatitis chronic with acute exacerbation. 2. New diagnosis of splenic vein thromboses likely a complication of acute on chronic pancreatitis. 3. History of alcoholism. 4. Chronic tobacco abuse. 5. Mildly elevated liver enzymes. RECOMMENDATIONS: 1. Will keep patient on aggressive IV fluids. 2. We will watch amylase, lipase. 3. The patient counseled to quit smoking and alcohol completely. 4. We will consult hematology service for treatment of new splenic vein thrombosis. The patient already initiated on Lovenox 60 mg subcu b.i.d. We need to ask for the specific duration of Lovenox in this setting. 5. Patient will be started on multivitamin twice daily. Patient history of alcoholism, need to watch her closely for DTs. We will give her folic acid and thiamine in the form of banana bag. 6. We will keep the patient on clear liquid diet for now. Further recommendation depending hospital course. The above plan was discussed with the patient and all questions were answered. [facility]
[2016-06-19] MEDS: SODIUM CHLORIDE 0.9% INJ SCH (02:44)
[2016-06-19] MEDS: PROTONIX IV SCH (02:44)
[2016-06-19 05:50] LABS: MANUAL DIFF NEEDED? NO
[2016-06-19 05:55] LABS: BASO% 0.4 % (0.0-0.8); EOS# 0.29 X1000 (0.0-0.7); EOS% 5.7 % (0.0-10.0); HEMATOCRIT 36.5 % (37.0-47.0); HEMOGLOBIN 11.7 g/dL (12.0-16.0); IMM GRAN# 0.03 X1000 (0.0-0.04); IMM GRAN% 0.6 % (0.0-0.5); LYMPH# 1.39 X1000 (1.2-3.4); LYMPH% 27.5 % (20.5-51.1); MCH 28.6 PG (27-31); MCHC 32.1 g/dL (33-37); MCV 89.2 FL (81-99); MONO# 0.55 X1000 (0.11-0.59); MONO% 10.9 % (1.7-9.3); MPV 9.3 FL (7.4-10.4); NEUT% 54.9 % (42.2-75.2); PLT 341 X1000 (130-400); RBC 4.09 XMIL (4.2-5.4)
[2016-06-19 06:16] LABS: AGAP 12; BUN 3 mg/dL (8-22); CALCIUM 9.2 mg/dL (8.8-10.2); CHLORIDE 102 mmol/L (98-107); COSMO 275; POTASSIUM 3.7 mmol/L (3.5-5.1); SODIUM 140 mmol/L (136-145); TCO2 26 mmol/L (25-35)
[2016-06-19] MEDS: NS 1,000 ML IV SCH (06:32)
[2016-06-19 07:57] VITALS: BP 151/102
[2016-06-19] MEDS: PRINIVIL PO SCH (08:06)
[2016-06-19] MEDS: CENTRUM SILVER PO SCH (08:06)
[2016-06-19] MEDS: NORVASC PO SCH (08:06)
[2016-06-19] MEDS: LOVENOX SUBQ SCH (08:07)
[2016-06-19 09:57] LABS: AMYLASE 128 U/L (20-200); LIPASE 95 U/L (13-60)
--- NOTE | 2016-06-19 15:00 | PROGRESS NOTE ---
DATE: 06/19/2016 SUBJECTIVE: The patient is feeling better. She is eager to go home. Her amylase and lipase has improved. Her current levels are amylase of 128, lipase of 95. She denies any nausea or vomiting. Denies any blood in the stools. OBJECTIVE: Vitals: Temperature of 98.3 degrees, pulse of 99, respiratory 18, blood pressure 150/102. Saturating 100% on room air. General Appearance: sitting in bed, in no acute distress. HEENT: Mild pallor. No icterus. Neck: Supple. Abdomen: Mild discomfort. No rebound or guarding. Bowel sounds. Extremities: No clubbing, clubbing, or edema. Neurologic: She is alert, awake, oriented. LAB: Her hemoglobin and hematocrit 11.7 and 36.5. White count 5.05, platelet count of 341,000. Sodium 140, potassium 3.7, chloride 102, bicarb 20, anion 12. BUN of 3, creatinine 0.5. Glucose of 90, calcium 9.2. Her amylase of 128, lipase of 95. Urinalysis showing small leukocytes and trace protein. IMPRESSION AND PLAN: 1. Chronic pancreatitis with acute exacerbation, which is getting better with IV fluids. 2. Splenic vein thrombosis, likely secondary complication of acute and chronic pancreatitis. 3. Chronic alcoholism. 4. Chronic smoker. 5. Chronic obstructive pulmonary disease. 6. Hypertension. RECOMMENDATIONS: Will continue the patient on liquid diet for next 2-3 days and advance to soft diet after that. The patient will be on a low-fat diet for 6 weeks. The patient was counseled to quit alcohol and smoking completely. The patient will see Dr. Giovanna Angel to plan for the duration of anticoagulation of the splenic vein thromboses. The patient also counseled to improve her compliance. Patient will continue on Prilosec once daily on discharge for GI prophylaxis. She will also benefit from pancreas enzyme supplementation. [facility]
--- NOTE | 2016-06-20 13:30 | DISCHARGE SUMMARY ---
ADMISSION DATE: 06/18/2016 DISCHARGE DATE: 06/19/2016 PERTINENT PROCEDURES: Abdomen and pelvis CT showed development of a very mild peripancreatic edema suggesting acute pancreatitis, stable small calcification in the head of the pancreas and possibly in an accessory pancreatic duct, acute splenic vein thrombosis. Interval development of a small amount of free fluid layering in the pelvis. DISCHARGE DIAGNOSES: 1. Acute on chronic pancreatitis improving. 2. 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 Continue on Xarelto. 3. Chronic alcoholism. Patient has been educated on cessation. 4. Tobacco abuse. Patient has been educated on tobacco abuse as well as smoking cessation and the means to quit. 5. Hypertension. We will resume her antihypertensive. HOSPITAL COURSE: Briefly, Ms. Verdugo is a 41-year-old female with a past medical history of chronic pancreatitis who continues to drink alcohol as well as smoke tobacco, hypertension, COPD, presented to the ED with 3-day history of having nausea, vomiting and severe abdominal pain. She states that she cannot eat anything, she was vomiting, she was having worsening epigastric pain. In the ED the imaging done showed peripancreatic edema and also splenic vein thrombosis. She was hospitalized with a surgical as well as GI consult. She was made NPO, placed on IV fluids as well given a banana bag and extensively counseled on alcohol and smoking cessation. Dr. Pope with Surgery recommended that the patient be anticoagulated and start a liquid diet but would avoid fats until her amylase and lipase normalized and she would need to become abstinent from alcohol in order for her pancreas to heal. Dr. Schuster also saw the patient. He suggested again aggressive IV fluids. Continue to monitor the amylase and lipase. Again counseled on smoking and alcohol cessation. The patient initially had been placed on full dose Lovenox. She has been switched to p.o. Xarelto. She will continue on the low glycemic index diet. Dr. Cohen has spoken with all specialties. They agree that she is appropriate for discharge today. VITAL SIGNS: Temperature is 98.3 degrees, heart rate 99, respirations 18, blood pressure 151/102, 100% on room air. DISCHARGE MEDICATIONS: 1. Albuterol inhaler 2 puffs inhaled q.4 hours p.r.n. 2. [place] 7.5, 1 each p.o. p.r.n. 3. Norvasc 5 mg p.o. b.i.d. 4. Prilosec 40 mg p.o. daily. 5. Prinivil 20 mg p.o. b.i.d. 6. Xarelto 15 mg p.o. b.i.d. after 42 more doses and then patient will start Xarelto 20 mg p.o. daily. FOLLOWUP: Patient is being discharged home. She will need to follow up with Dr. Fonseca on 06/28/2016 as well as her primary care physician, Dr. Octavio Samaniego in 7-10 days. Patient can return to the ED for any worsening of symptoms. Discharge time 30 minutes. Dictated by JERSEY Manrique for Joseph Arana MD
== END 2016-06-19 13:54 | disposition home or self-care (01) | DRG 439 ==
LOC: ED 21:22 → 4N 06-18 04:08
PROVIDERS: ATTEND Internal Medicine
DX: K85.20 Alcohol induced acute pancreatitis without necrosis or infection (principal); I82.890 Acute embolism and thrombosis of other specified veins; I10 Essential (primary) hypertension; F10.288 Alcohol dependence with other alcohol-induced disorder; J44.9 Chronic obstructive pulmonary disease, unspecified; F17.210 Nicotine dependence, cigarettes, uncomplicated; Z82.49 Family history of ischemic heart disease and other diseases of the circulatory system; Z79.899 Other long term (current) drug therapy; K86.0 Alcohol-induced chronic pancreatitis; R74.8 Abnormal levels of other serum enzymes
CPT/HCPCS: 74177; 80048; 80053; 81001; 82150; 82550; 83690; 84484; 85025; 87088; 93005; 96365; 96366; 96375; C9113; J1170; J1200; J1650; J2405; J3411; J3475; J3480; J7030; J7040; Q9967; S0164

== ENCOUNTER 2018-09-15 15:23 | Inpatient (IN) ==
[2018-09-15] MEDS ORDERED: PROTONIX IV ONE (15:50)
[2018-09-15] MEDS ORDERED: SODIUM CHLORIDE 0.9% INJ ONE (15:50)
[2018-09-15] MEDS ORDERED: G.I. COCKTAIL PO ONE (15:50)
--- NOTE | 2018-09-15 16:36 | Diag Imaging Result Doc PS360 ---
EXAM: FLAT/UPRIGHT ABD/1 VIEW CHEST - 09/15/2018 HISTORY: epigastric pain TECHNIQUE: Supine and upright abdomen one view chest COMPARISON: 06/25/2018 chest two views FINDINGS: The bowel gas pattern appears nonspecific and nonobstructive. There are some retained fecal debris in the colon. There is no free air identified. There are left upper quadrant calcifications compatible with splenic granulomas noted. Upright chest shows normal heart size. The lungs appear clear. There are some artifacts from patient's hair over the right apex. There is no pleural effusion or pneumothorax identified. IMPRESSION: Nonspecific bowel gas pattern. Apparent mild constipation. No evidence of acute cardiopulmonary disease. Electronically signed by George Lynch 09/15/2018 4:34 PM
[2018-09-15 16:57] LABS: URINE SOURCE CLEAN CATCH
[2018-09-15 16:59] LABS: BILIRUBIN URINE NEGATIVE (NEGATIVE); BLOOD URINE NEGATIVE (NEGATIVE); COLOR YELLOW; GLUCOSE URINE NEGATIVE (NEGATIVE); KETONE URINE NEGATIVE (NEGATIVE); LEUKOCYTES URINE NEGATIVE (NEGATIVE); NITRITE URINE NEGATIVE (NEGATIVE); PROTEIN URINE TRACE mg/dL (NEGATIVE); SP GRAVITY URINE 1.019; TURBIDITY URINE CLEAR (CLEAR); UROBILINOGEN URINE NORMAL (NORMAL)
[2018-09-15 17:00] LABS: UR EPITHELIAL CELLS <10 /HPF (<10); URINE BACTERIA NEGATIVE /HPF; URINE RBC <10 /HPF (<10); URINE WBC <10 /HPF (<10)
[2018-09-15 17:01] LABS: BASO# 0.03 X1000 (0.0-0.2); BASO% 0.4 % (0.0-0.8); EOS# 0.28 X1000 (0.0-0.7); EOS% 3.3 % (0.0-10.0); HEMATOCRIT 39.5 % (37.0-47.0); HEMOGLOBIN 13.3 g/dL (12.0-16.0); IMM GRAN# 0.02 X1000 (0.0-0.04); IMM GRAN% 0.2 % (0.0-0.5); LYMPH# 2.68 X1000 (1.2-3.4); LYMPH% 31.5 % (20.5-51.1); MCH 27.6 PG (27-31); MCHC 33.7 g/dL (33-37); MONO# 0.68 X1000 (0.11-0.59); MPV 9.4 FL (7.4-10.4); NEUT# 4.83 X1000 (1.4-6.5); NEUT% 56.6 % (42.2-75.2); PLT 403 X1000 (130-400); RBC 4.82 XMIL (4.2-5.4); RDW 13.5 % (11.5-14.5); WBC 8.52 X1000 (4.8-10.8)
[2018-09-15 17:27] LABS: AGAP 10; ALB/GLOB RATIO 1.3; ALBUMIN 4.2 g/dL (3.5-5.0); ALKALINE PHOSPHATASE 65 U/L (32-104); AMYLASE 173 U/L (20-200); BUN 9 mg/dL (8-22); CALCIUM 9.8 mg/dL (8.8-10.2); CHLORIDE 102 mmol/L (98-107); COSMO 278; CREATININE 0.8 mg/dL (0.5-0.9); ESTIMATED GFR > 60; GLUCOSE 123 mg/dL (70-104); GOT 19 U/L (10-30); GPT 22 U/L (10-36); LIPASE 391 U/L (13-60); POTASSIUM 3.3 mmol/L (3.5-5.1); SODIUM 139 mmol/L (136-145); TCO2 27 mmol/L (25-35); TOTAL BILIRUBIN 0.18 mg/dL (0.20-1.00); TOTAL PROTEIN 7.5 g/dL (6.3-8.3)
[2018-09-15] MEDS ORDERED: PERCOCET-10 PO ONE ×2 (17:52→18:20)
--- NOTE | 2018-09-15 18:03 | PROVIDER DOCUMENTATION ---
This chart was entered by Rekha Haines Scribe, acting as scribe for Fox Omalley MD. HPI-Abdominal Pain/GI Problem - General Chief Complaint: Back Pain Stated Complaint: STOMACH BACK PAIN Time Seen by Provider: 09/15/18 15:36 Source: patient Allergies/Adverse Reactions: Patient Allergies Allergy/AdvReac Type Severity Reaction Status Date / Time Penicillins Allergy Intermediate RASH Verified 09/15/18 16:55 Home Medications: Home Medication List Medication Instructions Recorded Confirmed Last Taken Type Amlodipine [Norvasc] 5 mg PO QAM 01/05/17 09/15/18 09/15/18 History LISINOpril [Prinivil] 20 mg PO QAM 01/05/17 09/15/18 09/15/18 History Metformin [Glucophage] 500 mg PO QAM 01/05/17 09/15/18 09/15/18 History Alprazolam 1 mg PO DAILY 07/27/17 09/15/18 09/15/18 History - History of Present Illness-ABD Nature of Presenting Problems: 43 y/o female presents to ED with worsening intermittent, severe epigastric pain and poor appetite onset 3 weeks ago. Pt reports she has hx pancreatitis and alcoholism. Pt also complains of low back pain onset 3 days ago. Pt is alert and oriented. Abdominal Pain Onset Location: reports: epigastric Pain Radiation: reports: no radiation Quality of Pain: reports: aching Severity in ED: reports: severe Onset/Duration: reports: 3 days ago, other (3 weeks ago) Timing: reports: still present, intermittent, getting worse Activities at Onset: reports: none Modifying Factors: improves with: nothing Associated Symptoms: reports: back/neck pain (low back), loss of appetite, other (epigastric pain) Last BM: unsure Dark Stools Present?: reports: none noticed Rectal Bleeding: reports: none Rectal Pain: reports: none Similar Symptoms Previously?: Yes (hx pancreatitis) Recently seen or treated by another doctor?: No Review of Systems - Adult - REVIEW OF SYSTEMS - ADULT Constitutional: denies: chills, fever Eyes: reports: no symptoms reported Ears, Nose, Mouth & Throat: reports: no symptoms reported Cardiovascular: denies: chest pain, palpitations Respiratory: denies: cough, shortness of breath Gastrointestinal: reports: abdominal pain, poor appetite. denies: diarrhea, nausea, vomiting Genitourinary: reports: no symptoms reported Musculoskeletal: reports: back pain (low). denies: joint pain Integumentary: reports: no symptoms reported Neurological: denies: dizziness/vertigo, seizure Psychiatric: reports: no symptoms reported Endocrine: reports: no symptoms reported Hematologic/Lymphatic: reports: no symptoms reported Allergic/Immunologic: reports: no symptoms reported Past History - Adult - PAST MEDICAL HISTORY-ADULT Review of Records: reports: Old Records Reviewed, Nursing Assessment Review, Medications Reviewed Major Childhood Illnesses: reports: denies history Cardiovascular: reports: HTN, hyperlipidemia Respiratory: reports: COPD, other (EMPHYSEMA) Gastrointestinal: reports: pancreatitis Obstetrical/Gynecological: reports: denies history Genitourinary: reports: denies history Musculoskeletal: reports: denies history Neurological: reports: denies history Psychiatric: reports: anxiety, depression, psychiatric problems Endocrine/Immune: reports: Diabetes, thyroid disorder Other Conditions: reports: denies history - PRIOR SURGERIES/PROCEDURES Surgical/Procedure History: reports: hysterectomy, BTL, hernia repair, orthopedic (extremity) (R arm), other (ovarian cysts) - IMMUNIZATION STATUS Childhood Immunizations: See Nurse Assessment Flu Vaccine: See Nurse Assessment - FAMILY HISTORY Family History: reviewed, not pertinent - SOCIAL HISTORY Smoking: greater than 1 pack/day Provider spent 3-5 mins advising pt. on dangers of tobacco.: Discussed manners to quit use, and f/u contacts for add'l counseling. Substance Use: none presently/history of abuse, alcohol Alcohol Use Frequency: sober (former use) Living Situation: family Physical Exam-General - PHYSICAL EXAM-ADULT Initial Vital Signs Reviewed: Yes - CONSTITUTIONAL General Appearance: alert, mild distress - EYES Eyes: PERRL/EOMI - HEAD, EARS, NOSE, MOUTH & THROAT HENMT: normocephalic/atraumatic, moist mucous membranes, normal ENT inspection - NECK Neck: non-tender, full range of motion - RESPIRATORY Respiratory: chest non-tender, lungs clear, normal breath sounds - CARDIOVASCULAR Cardiovascular: normal peripheral pulses, regular rate, rhythm - GASTROINTESTINAL (ABDOMEN) Abdominal Exam: normal bowel sounds, soft, tenderness (epigastric) - MUSCULOSKELETAL Back Exam: normal inspection, no CVA tenderness Extremity: normal range of motion, non-tender, normal gait, other (normal leg raise test bilaterally) - SKIN Integumentary: normal color, warm/dry - NEUROLOGIC Neurologic: grossly normal - PSYCHIATRIC Psych/Mental Status: normal thought content, normal thought process Progress - PLAN OF CARE/RESULTS Progress/Plan/Lab Results: Vital Signs - 8 hr 09/15/18 15:31 Temperature 97.9 F Pulse Rate 93 H Respiratory Rate 18 Blood Pressure 158/96 O2 Sat by Pulse Oximetry 100 Orders Category Date Time Status FLAT/UPRIGHT ABD/1 VIEW CHEST [RAD] Stat Exams 09/15/18 15:49 Completed AMYLASE [CHEM] Stat Lab 09/15/18 15:48 Uncollected CBC WITH ELECTRONIC DIFF [HEME] Stat Lab 09/15/18 15:48 Uncollected COMPREHENSIVE METABOLIC PANEL [CHEM] Stat Lab 09/15/18 15:48 Uncollected LIPASE [CHEM] Stat Lab 09/15/18 15:48 Uncollected URINALYSIS W/POSS RFLX CULT [URINALYSIS] Stat Lab 09/15/18 15:49 Uncollected Lido/Armijo Alk/Al&mg Hydrox [G.i. Cocktail] Med 09/15/18 15:50 Discontinued 30 ml PO NOW ONE Pantoprazole [Protonix] Med 09/15/18 15:50 Discontinued 40 mg IV NOW ONE Sodium Chloride 0.9% Med 09/15/18 15:50 Discontinued 10 ml INJ NOW ONE EKG [EKG] Stat Ther 09/15/18 15:49 Ordered Laboratory Tests 09/15/18 09/15/18 16:16 16:35 WBC 8.52 RBC 4.82 Hgb 13.3 Hct 39.5 MCV 82.0 MCH 27.6 MCHC 33.7 RDW Std Deviation 13.5 Plt Count 403 H MPV 9.4 Immature Gran % (Auto) 0.2 Neut % (Auto) 56.6 Lymph % (Auto) 31.5 [place] % (Auto) 8.0 Eos % (Auto) 3.3 Baso % (Auto) 0.4 Immature Gran # (Auto) 0.02 Neut # (Auto) 4.83 Lymph # (Auto) 2.68 [place] # (Auto) 0.68 H Eos # (Auto) 0.28 Baso # (Auto) 0.03 Urine Source CLEAN CATCH Urine Color YELLOW Urine Turbidity CLEAR Urine pH 6.0 Ur Specific [place] 1.019 Urine Protein TRACE A Ur Glucose (Stick) NEGATIVE Ur Ketones (Stick) NEGATIVE Urine Blood NEGATIVE Urine Nitrite NEGATIVE Urine Bilirubin NEGATIVE Urobilinogen Dipstick NORMAL Urine Leukocytes NEGATIVE Urine WBC (Auto) <10 Urine RBC (Auto) <10 U Epithel Cells (Auto) <10 Urine Bacteria (Auto) NEGATIVE Result Diagrams: 09/15/18 16:35 09/15/18 16:35 - XRAY 1 XRAY Study: Abdomen Impression: Abnormal ([facility] [address], [address], [place] [address] Department of Imaging Patient: ELEONORA ALLEN Date: 09/15/18#: [id number] : 1975[facility]M [facility] [id number] Age/Sex: 43/FRoom/Bed: Loc: ED Ordering Physician: Fox Hsieh MD Family Physician: Octavio Samaniego MD Reason for Procedure: epigastric pain ___ Signed EXAM: FLAT/UPRIGHT ABD/1 VIEW CHEST - 09/15/2018 HISTORY: epigastric pain TECHNIQUE: Supine and upright abdomen one view chest COMPARISON: 06/25/2018 chest two views FINDINGS: The bowel gas pattern appears nonspecific and nonobstructive. There are some retained fecal debris in the colon. There is no free air identified. There are left upper quadrant calcifications compatible with splenic granulomas noted. Upright chest shows normal heart size. The lungs appear clear. There are some artifacts from patient's hair over the right apex. There is no pleural effusion or pneumothorax identified. IMPRESSION: Nonspecific bowel gas pattern. Apparent mild constipation. No evidence of acute cardiopulmonary disease. Electronically signed by George Lynch 09/15/2018 4:34 PM 09/15/18 1507 Interpreting Physician: George Lynch MD Dictated Date/Time: 09/15/18 1292 cc: Fox Omalley MD; Octavio Samaniego MD) - CONSULTS/PCP/HOSPITALIST Notification #1 *Consult/PCP/Hospitalist*: [employer] Tarsha admitting for Dr. Farrar Time Discussed: 18:12 Consult Disposition: Admit (Hx, PE and pt care discussed, admitted.) Departure - Departure Date of Disposition Decision: 09/15/18 Time of Disposition Decision: 18:12 DIAGNOSIS: Acute pancreatitis Qualifiers: Pancreatitis type: other Acute pancreatitis complication: unspecified Qualified Code(s): K85.80 - Other acute pancreatitis without necrosis or infection Disposition: ADMITTED INPATIENT 09 Certified Medical Emergency: Emergent Condition: Stable Referrals and Follow-Ups: Octavio Samaniego MD [Primary Care Provider] - Discharge Education: Steps to Quit Smoking, [id number] - Critical Care Note This patient required my direct & personal management of CC.: No Attestation - Physician/ MAD[place] Attestation Patient care was provided by Advanced Practice Provider:: No The physician spent face to face time with patient:: Yes Advanced Practice Provider documentation review:: Supervising physician onsite and consulted in the evaluation and care of this patient. The physician did have a face to face encounter with the patient. This chart was documented by the indicated scribe, (Rekha Haines, Scrnicolas) and accurately reflects the services I performed and decisions made by me, Fox Hsieh MD, as attested by the provider's signature.
[2018-09-15] MEDS ORDERED: LR 1,000 ML IV ONE (18:35)
[2018-09-15] MEDS ORDERED: ZOFRAN IV PRN (18:36)
[2018-09-15] MEDS ORDERED: TYLENOL PO PRN (18:40)
[2018-09-15 19:02] LABS: UR AMPHETAMINES QUAL NONE DETECTED (NONE DETECT); UR BARBITUATES QUAL NONE DETECTED (NONE DETECT); UR BENZODIAZEPIN QUAL PRESUMPTIVE POSITIVE (NONE DETECT); UR CANNABINOIDS QUAL NONE DETECTED (NONE DETECT); UR COCAINE QUAL NONE DETECTED (NONE DETECT); UR METHADONE QUAL NONE DETECTED (NONE DETECT); UR OPIATES QUAL PRESUMPTIVE POSITIVE (NONE DETECT); UR OXYCODONE QUAL PRESUMPTIVE POSITIVE (NONE DETECT); UR PCP QUAL NONE DETECTED (NONE DETECT)
--- NOTE | 2018-09-15 19:21 | HISTORY AND PHYSICAL ---
CHIEF COMPLAINT: Abdominal pain, nausea, vomiting. HISTORY OF PRESENT ILLNESS: This is a 43-year-old female with a history of alcoholic pancreatitis, diabetes mellitus, COPD, hypertension and hypothyroid. She presents to the emergency room complaining of low back and abdominal pain that has been present for about the last 2 to 3 weeks. It has been waxing and waning, but during the night and up into the day it became persistent. She said it felt like her prior pancreatitis. Therefore, she presented for evaluation. She does have a history of chronic alcohol abuse. She states that about three years ago she stopped drinking regularly, although lately she has drank and symptoms started after drinking during this last few weeks. PAST MEDICAL HISTORY: 1. Diabetes mellitus type 2. 2. Splenic venous thrombosis secondary to acute on chronic pancreatitis. 3. Chronic alcoholism. 4. Hypertension. 5. Diabetes mellitus. 6. Acute on chronic pancreatitis. 7. COPD. PAST SURGICAL HISTORY: Hysterectomy, right arm surgery. ALLERGIES: Penicillin and morphine. HOME MEDICATIONS: A list will be obtained by the nursing staff and once verified will review restart as appropriate. REVIEW OF SYSTEMS: Discussed with patient with pertinent positives stated in the HPI. She denied any syncope, any dizziness, any chest pain, palpitations, any shortness of breath, cough, fever, chills, any PND, orthopnea, recent weight loss or weight gain, any night sweats, any black or bloody vomitus or stools, any diarrhea, any hematuria, dysuria, frequency, urgency. PHYSICAL EXAMINATION: GENERAL: This is a 43-year-old female lying in the bed in no distress. VITAL SIGNS: Blood pressure is 158/96, with a heart rate of 90, respirations are 18, temperature is 97.9, with room air sats 100%. EYES: Pupils equal, round, react to light. EOMs are intact. Sclerae are anicteric. HEENT: Head is normocephalic, atraumatic. Mucous membranes are dry. NECK: Supple, trachea midline. CARDIOVASCULAR: Regular rate and rhythm. S1 and S2 are appreciated. She has no lower extremity edema. Calves are nontender bilateral. Peripheral pulses palpable x 4 extremities. PULMONARY: Breath sounds are clear with no increased work of breathing noted. Chest rises and falls symmetric with respiration. Chest wall is nontender to palpation. GASTROINTESTINAL: Abdomen is soft. It is distended. She has generalized tenderness specifically in the epigastric to right upper quadrant area. She has bowel sounds in all 4 quadrants. GENITOURINARY: She has no CVA nor suprapubic tenderness. NEUROLOGIC: She is alert oriented x 3. SKIN: Warm and dry. LABORATORY: WBC is 8.5, with hemoglobin 13.3, hematocrit 39.5, and platelets of 403,000. Sodium is 139, potassium 3.3, BUN 9, creatinine 0.8, with a glucose of 123, total bilirubin is 0.18, with an amylase of 173, lipase of 391. Urinalysis is essentially negative. Urine test is negative. Abdominal x-ray reveals constipation. ASSESSMENT AND PLAN: 1. Acute on chronic pancreatitis. The patient will remain n.p.o. we will give IV hydration. 2. Hypokalemia. We will supplement and recheck labs in the morning. 3. Diabetes mellitus type 2. We will hold her oral medications. She will be placed on pattern blood glucose with sliding scale insulin. 4. Chronic obstructive pulmonary disease with no exacerbation. 5. 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 6. Hypertension. We will evaluate her home medications and continue as appropriate. 7. Ongoing tobacco abuse. We did discuss smoking cessation with the patient. We did discuss the perils of continuing to smoke and she will be given written information. We will use a nicotine patch p.r.n. 8. Chronic alcoholism. The patient states that she stopped drinking regular quite a while back, although she has been drinking off and on over the last few months and she was drinking prior to this episode. Once again, we did discuss the importance of alcohol cessation. 9. For DVT prophylaxis we will use Lovenox. 10. GI prophylaxis, Prilosec. 11. Constipation. We will give her Relistor x 1. 12. Further treatments pending hospital course. Dictated by JERSEY Rizvi for Soham Farrar MD cc: JERSEY Rizvi MD
[2018-09-15] MEDS ORDERED: NICODERM PATCH TD PRN (19:23)
[2018-09-15] MEDS ORDERED: RELISTOR SUBQ ONE ×2 (19:25→21:23)
[2018-09-15] MEDS ORDERED: LIDODERM TOP SCH (19:30)
--- NOTE | 2018-09-15 19:47 | HISTORY AND PHYSICAL ---
ADDENDUM: I Agree with most components of history, physical, assessment and plan. In brief Ms Verdugo is 43 years old woman with past medical history of acute pancreatitis, alcohol abuse, tobacco abuse, splenic vein thrombosis, essential hypertension, noninsulin- dependent diabetes mellitus, who came in with chief complaints of persistent epigastric abdominal pain and nausea of about 1 week duration. The patient states that she has not had any alcoholic drink in the last 2 months or so. However 1 day suddenly after eating something she started experiencing epigastric pain which actually got better after 2 days but only to recur again about 5 days prior to presentation associated with epigastric pain. She also had some nausea without vomiting. Today she went to eat at 1 of her relative's house and had spaghetti following which she again started experiencing epigastric pain and this time around also bilateral low back pain so she decided to come to the emergency room. She has never had back pain before. She denies using any recreational substances. She continues to smoke. She denies known history of cholelithiasis or nephrolithiasis. In the emergency room she was hemodynamically stable however was in distress because of abdominal pain. She had elevated lipase so hospitalist team was consulted for further management. SUBJECTIVE: At the time of my evaluation she is complaining of bilateral low back pain and epigastric pain and some nausea. VITALS: Temperature 97.9 degrees, pulse 93, respiratory rate 18, blood pressure 150/96, saturating 100% room air. PHYSICAL EXAMINATION: Not in any acute distress. Oral cavity is moist with missing teeth. Air entry bilaterally equal. No wheeze, rhonchi, crackles. S1, S2 normal. No murmur or gallop. ABDOMEN: Soft, tender in epigastric region. No lower extremity edema. She has bilateral lower back pain. NEUROLOGIC: Alert, oriented x3. LABS: Normal hemoglobin, hematocrit, platelet count, hypokalemia being repleted. Normal kidney function. Elevated lipase. Urine toxicology positive for opiates and benzodiazepines. ASSESSMENT AND PLAN: 1. Suspected acute on chronic pancreatitis. 2. Chronic pain disorder on chronic opioid for chronic abdominal pain and osteoarthritis pain. 3. Anxiety . 4. History of splenic vein thrombosis status post Xarelto and now on aspirin. 5. Essential hypertension. 6. Noninsulin dependent diabetes mellitus. 7. Opioid induced constipation PLAN: Start patient on intravenous fluid resuscitation. Follow up with ultrasound abdomen results. Will continue her nicotine patch. Will keep her n.p.o. and start on clear liquid diet tomorrow onwards. I also gave her Methyl-naltrexone for opioid induced constipation. Plan of care discussed with the patient. All of her questions have been answered. Her is also at bedside. cc: Soham Farrar MD [facility]TDD
[2018-09-15] MEDS: PERCOCET-5 PO PRN (21:59)
[2018-09-16] MEDS: POTASSIUM CHLORIDE 20 MEQ/SWI 20 MEQ/100 ML IVPB IV SCH ×2 (02:09→04:42)
[2018-09-16] MEDS: PERCOCET-5 PO PRN ×5 (04:42→23:25)
[2018-09-16 07:52] LABS: BASO# 0.07 X1000 (0.0-0.2); EOS# 0.36 X1000 (0.0-0.7); EOS% 4.9 % (0.0-10.0); HEMATOCRIT 39.4 % (37.0-47.0); LYMPH# 3.05 X1000 (1.2-3.4); LYMPH% 41.4 % (20.5-51.1); MCH 27.1 PG (27-31); MCV 82.3 FL (81-99); MONO# 0.66 X1000 (0.11-0.59); MPV 9.3 FL (7.4-10.4); NEUT# 3.22 X1000 (1.4-6.5); NEUT% 43.7 % (42.2-75.2); PLT 394 X1000 (130-400); RBC 4.79 XMIL (4.2-5.4); RDW 13.7 % (11.5-14.5); WBC 7.36 X1000 (4.8-10.8)
[2018-09-16 08:03] LABS: INR 0.93; PROTIME 13.2 Seconds (11.0-16.0); PTT 31.1 Seconds (22.3-41.8)
[2018-09-16 08:18] LABS: AGAP 11; ALB/GLOB RATIO 1.3; ALBUMIN 3.9 g/dL (3.5-5.0); ALKALINE PHOSPHATASE 60 U/L (32-104); BUN 6 mg/dL (8-22); CALCIUM 9.7 mg/dL (8.8-10.2); CHLORIDE 103 mmol/L (98-107); COSMO 276; CREATININE 0.5 mg/dL (0.5-0.9); ESTIMATED GFR > 60; GLUCOSE 117 mg/dL (70-104); GOT 18 U/L (10-30); GPT 18 U/L (10-36); POTASSIUM 3.9 mmol/L (3.5-5.1); SODIUM 139 mmol/L (136-145); TCO2 25 mmol/L (25-35); TOTAL BILIRUBIN 0.24 mg/dL (0.20-1.00)
[2018-09-16] MEDS: LOVENOX SUBQ SCH (08:27)
[2018-09-16] MEDS: PRILOSEC PO SCH (08:27)
[2018-09-16] MEDS: NORVASC PO SCH (08:28)
[2018-09-16] MEDS: XANAX PO SCH (08:28)
--- NOTE | 2018-09-16 08:46 | Diag Imaging Result Doc PS360 ---
EXAM: US ABDOMEN-COMPLETE HISTORY: Evaluate for gall stones TECHNIQUE: Abdominal ultrasound COMPARISON: CT from 01/05/2017 FINDINGS: Normal pancreas. No abdominal aortic aneurysm. Normal inferior vena cava. No focal hepatic abnormality. Normal right kidney. No hydronephrosis. The common bile duct measures 4 mm. Normal gallbladder. No stones. The spleen. No ascites. Normal left kidney. No hydronephrosis. IMPRESSION: Normal abdominal ultrasound Electronically signed by Clarence Hoffmann 09/16/2018 8:44 AM
[2018-09-16] MEDS ORDERED: ZOSTRIX TOP PRN (12:40)
[2018-09-16] MEDS: LACTULOSE PO SCH ×2 (14:04→22:22)
[2018-09-16] MEDS: DULCOLAX PR SCH ×2 (17:30→22:22)
[2018-09-17] MEDS: XANAX PO SCH (09:39)
[2018-09-17] MEDS: PRILOSEC PO SCH (09:39)
[2018-09-17] MEDS: LOVENOX SUBQ SCH (09:39)
[2018-09-17] MEDS: NORVASC PO SCH (09:40)
[2018-09-17] MEDS: LACTULOSE PO SCH (09:40)
[2018-09-17] MEDS: PERCOCET-5 PO PRN (09:40)
[2018-09-17] MEDS: DULCOLAX PR SCH (09:40)
[2018-09-17 11:35] VITALS: BP 144/97
--- NOTE | 2018-09-17 17:21 | DISCHARGE SUMMARY ---
ADMISSION DATE: 09/15/2018 DISCHARGE DATE: 09/17/2018 PRIMARY CARE PHYSICIAN: Dr. Samaniego. ADMISSION DIAGNOSIS: 1. An acute on chronic pancreatitis. 2. Hypocalcemia. 3. Diabetes type 2. 4. Chronic obstructive pulmonary disease with no exacerbation. 5. 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 5. Hypertension. 6. Ongoing tobacco abuse. 7. Chronic alcoholism. DISCHARGE DIAGNOSIS: 1. An acute on chronic pancreatitis improved. 2. Hypocalcemia resolved. 3. Diabetes type 2. 4. Chronic obstructive pulmonary disease with no exacerbation. 5. 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 5. Hypertension. 6. Ongoing tobacco abuse. 7. Chronic alcoholism. SUMMARY OF FINDINGS: This is a 43-year-old female who presented to the emergency room with complaints of low back pain and abdominal pain for 2-3 weeks that had progressively worsened had been waxing and waning but during the night and up into the day it became persistent. She said it felt like her prior pancreatitis and so she came in states that she had been quit drinking regularly for about 3 years but had lately drank and symptoms started after drinking during the last few weeks. Was admitted, placed on IV hydration, held n.p.o. initially. Her potassium is now back to normal at 3.9 . We did an abdomen x-ray on 09/15/2018 that showed a nonspecific bowel gas pattern and an apparent mild constipation. We did an abdomen ultrasound on 12/17/2018 that showed a normal abdominal ultrasound, she is now tolerating a mechanical soft diet and it is felt now that she can safely be discharged home. DISCHARGE MEDICATION: Alprazolam 1 mg p.o. daily, amlodipine 5 mg p.o. q.a.m., bisacodyl 10 mg per rectum b.i.d., Zostrix topically 4 times daily as needed, lactulose 30 mL p.o. b.i.d., nicotine 21 mg transdermally daily p.r.n., lisinopril 20 mg p.o. q.a.m., Glucophage 500 mg p.o. q.a.m. FOLLOWUP: She will need to follow up with her primary care physician in the next 1-2 weeks and call the office for an appointment. TIME SPENT: 33 minutes. Dictated by JERSEY Holland for Soham Farrar MD cc: JERSEY Holland MD Dr. Awoniyi
--- NOTE | 2018-09-17 21:05 | PROGRESS NOTE ---
DATE: 09/16/2018 INTERVAL HISTORY: The patient says that she is feeling better. She has not had any nausea. She continues to have back pain. She has not had a bowel movement. We discussed about physical exam findings, plan, and answered all of her questions. VITALS: Temperature 97.7, pulse 81, respiratory rate 16, blood pressure 141/98, saturating 100% on room air. PHYSICAL EXAMINATION: General: Does not appear in any acute distress. HEENT: Oral cavity is moist. Lungs: Air entry bilaterally equal. No wheezing, crackles, or rhonchi. Cardiovascular: S1 and S2 normal. No murmur, rub or gallop. Abdomen: Soft, only mildly tender in the region. She does have bilateral lower back tenderness. Neurologic: She is alert and oriented x3. LABORATORIES: Suggestive of normal CBC. Her hypokalemia has resolved. IMAGING: The patient did get an abdominal ultrasound, which had normal pancreas. No focal hepatic abnormality. Normal right kidney. No hydronephrosis. No ascites. Normal left kidney. No hydronephrosis. ASSESSMENT AND PLAN: 1. Suspected acute on chronic pancreatitis due to continuous alcohol use and worsening of chronic pancreatitis. The patient is status post intravenous fluid resuscitation. I will advance diet to full liquid diet. The patient is advised to completely abstain from alcohol and medications which could potentiate pancreatitis. She was also advised to avoid constipation. 2. Chronic pain disorder. On chronic opioid for chronic abdominal pain and osteoarthritic pain. I will continue her currently on her home Percocet. I will start the patient on lactulose and Bisacodyl suppositories for opioid-induced constipation. 3. I will continue alprazolam for anxiety; amlodipine for essential hypertension; Nicotine patch for ongoing tobacco abuse; omeprazole for chronic gastroesophageal reflux disease; Capsaicin cream for topical application over bilateral lower back for musculoskeletal back pain. DISPOSITION: I will monitor the patient inside hospital for another 24 hours. Plan of care is discussed with the patient and all of her questions have been answered. cc: Soham Farrar MD [facility]
== END 2018-09-17 15:38 | disposition home or self-care (01) | DRG 440 ==
LOC: ED 15:23 → 3N 20:02
PROVIDERS: ATTEND Internal Medicine
CPT/HCPCS: 74022; 76700; 80053; 80101; 80301; 80307; 80324; 80345; 80346; 80353; 80358; 80361; 80365; 81001; 81025; 82150; 82948; 83690; 83992; 85025; 85610; 85730; 93005; A9270; C9113; G0431; G0434; G0479; G0480; J1650; J3480; J7120; S0164; XXXXX